=== PATIENT | female | born 1960 | race Caucasian/White ===

== ENCOUNTER 2017-06-24 12:55 | Emergency (ER) | payer BC, OTHER ==
[2017-06-24 13:07] VITALS: BP 143/68; PULSE 85; RESP 16; TEMP 98.4
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
== END 2017-06-24 13:54 | disposition home or self-care (01) ==
LOC: EC 12:55
DX: S46.911A Strain of unspecified muscle, fascia and tendon at shoulder and upper arm level, right arm, initial encounter (principal); Z88.2 Allergy status to sulfonamides; Z91.030 Bee allergy status; Z91.048 Other nonmedicinal substance allergy status; Z88.8 Allergy status to other drugs, medicaments and biological substances; Z87.891 Personal history of nicotine dependence; X50.0XXA Overexertion from strenuous movement or load, initial encounter; Y92.69 Other specified industrial and construction area as the place of occurrence of the external cause; Y99.0 Civilian activity done for income or pay
CPT/HCPCS: 99283

== ENCOUNTER → 2018-05-12 | Outpatient (CLI) | payer BC ==
--- NOTE | 2018-05-12 15:47 | XR ---
EXAMINATION TYPE: XR cervical spine limited DATE OF EXAM: 05/12/2018 TECHNIQUE: Frontal and lateral views of the cervical spine are obtained. HISTORY: M50.30 Cervical disc degeneration COMPARISON: None FINDINGS: The cervical spine is visualized in its entirety from C1 thru the top of T1 level, it is s atisfactory in alignment without evidence of acute fracture or dislocation. Prevertebral soft tissue thickness is within normal limits however there is heterotopic ossification within the prevertebral s oft tissues again seen as present on the prior spanning the C3-C5 vertebral levels. Anterior cervical fusion device spans the C6 and C7 vertebral bodies with partial osseous fusion. Multilevel uncoverte bral hypertrophy is seen on the frontal image throughout the upper cervical spine. There is no eviden ce of hardware fracture. There is straightening of usual cervical lordosis. The C1-C2 articulation is within normal limits on the open mouth view. IMPRESSION: 1. No acute fracture or malalignment is seen in the cervical spine. 2. Similar appearing heterotopic ossification within the prevertebral soft tissues from C3 through C5 and moderate multilevel degenerative change with straightening of usual cervical lordosis that can b e seen in muscular sprain or spasm. Unchanged postsurgical changes of the cervical spine with no hard rose fracture.
== END | disposition home or self-care (01) ==
LOC: RADXRMAIN 15:12
PROVIDERS: ATTEND Family Medicine
DX: M47.812 Spondylosis without myelopathy or radiculopathy, cervical region (principal); Z98.1 Arthrodesis status
CPT/HCPCS: 72040

== ENCOUNTER → 2018-10-06 | Outpatient (CLI) | payer BC ==
--- NOTE | 2018-10-09 13:33 | MM ---
Reason for exam: screening (asymptomatic). Last mammogram was performed 2 years and 3 months ago. History: Patient is postmenopausal. Benign mammogram-guided core biopsy of the left breast, June 28, 2014. MG 3D Screening Mammo W/Cad Bilateral CC and MLO view(s) were taken. Prior study comparison: July 10, 2016, bilateral MG screening mammo w CAD. June 28, 2014, mammogram, performed at [facility]. The breast tissue is heterogeneously dense. This may lower the sensitivity of mammography. There is a stable oval circumscribed right upper outer quadrant mass in the right breast. A left breast biopsy marker is noted. ASSESSMENT: Benign, BI-RAD 2 RECOMMENDATION: Routine screening mammogram of both breasts in 1 year.
== END | disposition home or self-care (01) ==
LOC: RADMAMWWP 15:16
PROVIDERS: ATTEND Family Medicine
DX: Z12.31 Encounter for screening mammogram for malignant neoplasm of breast (principal)
CPT/HCPCS: 77063; 77067

== ENCOUNTER → 2019-07-19 | Outpatient (CLI) | payer BC ==
--- NOTE | 2019-07-19 15:59 | XR ---
EXAMINATION TYPE: XR chest 2V DATE OF EXAM: 07/19/2019 COMPARISON: 03/03/2011 INDICATION: Pneumonia, cough x1 week TECHNIQUE: Frontal and lateral views of the chest are obtained. FINDINGS: The heart size is normal. The pulmonary vasculature is normal. Some plate like atelectasis is at the left diaphragm. Some mild increase infiltrate is in the posteri or medial right lower lobe. IMPRESSION: 1. Mild bibasilar infiltrates. Follow-up is recommended.
== END | disposition home or self-care (01) ==
LOC: RADXRMAIN 08:34
PROVIDERS: ATTEND Family Medicine
DX: R91.8 Other nonspecific abnormal finding of lung field (principal)
CPT/HCPCS: 71046

== ENCOUNTER → 2020-12-09 | Outpatient (CLI) | payer BC ==
--- NOTE | 2020-12-11 10:02 | MM ---
Reason for exam: screening (asymptomatic). Last mammogram was performed 2 years and 2 months ago. History: Patient is postmenopausal. Benign mammogram-guided core biopsy of the left breast, June 28, 2014. Physical Findings: A clinical breast exam by your physician is recommended on an annual basis and results should be correlated with mammographic findings. MG Screening Mammo w CAD Bilateral CC and MLO view(s) were taken. Prior study comparison: October 06, 2018, bilateral MG 3d screening mammo w/cad. July 10, 2016, bilateral MG screening mammo w CAD. The breast tissue is heterogeneously dense. This may lower the sensitivity of mammography. Previous mammotome biopsy in the left breast. Lateral asymmetric density right CC view slightly more defined. Faint calcifications posterior left CC view may represent developing vascular calcifications. ASSESSMENT: Incomplete: need additional imaging evaluation, BI-RAD 0 RECOMMENDATION: Special view mammogram of both breasts. (right spot 3D, left magnification) If lesion persists on supplemental views, image directed ultrasound is recommended. [facility] will attempt to contact patient to return for supplemental views and ultrasound if indicated.
== END ==
LOC: RADMAMWWP 10:17
PROVIDERS: ATTEND Family Medicine
DX: Z12.31 Encounter for screening mammogram for malignant neoplasm of breast (principal); Z78.0 Asymptomatic menopausal state
CPT/HCPCS: 77067

== ENCOUNTER → 2020-12-09 | Outpatient (CLI) | payer BC | END | disposition home or self-care (01) | LOC: LABPAT 10:24 | PROVIDERS: ATTEND Orthopaedic Surgery | DX: Z01.812 Encounter for preprocedural laboratory examination (principal) | CPT/HCPCS: 87070 ==

== ENCOUNTER → 2020-12-09 | Outpatient (CLI) | payer BC ==
--- NOTE | 2020-12-09 11:11 | XR ---
EXAMINATION TYPE: XR chest 2V DATE OF EXAM: 12/09/2020 COMPARISON: Chest x-ray July 19, 2019 HISTORY: Shortness of breath on exertion. TECHNIQUE: Frontal and lateral views of the chest are obtained. FINDINGS: There is chronic parenchymal changes bilaterally including lateral left basilar linear scar ring and/or atelectasis redemonstrated. There is no new suspicious focal air space opacity, pleural effusion, or pneumothorax seen. The cardiac silhouette size is stable and within normal limits. Ante rior fusion plate lower cervical spine redemonstrated. Cholecystectomy clips redemonstrated on latera l view IMPRESSION: Chronic changes without new acute pulmonary process.
== END ==
LOC: RADXRMAIN 10:35
PROVIDERS: ATTEND Family Medicine
DX: R06.02 Shortness of breath (principal)
CPT/HCPCS: 71046

== ENCOUNTER → 2020-12-19 | Outpatient (CLI) | payer BC ==
--- NOTE | 2020-12-20 11:51 | MM ---
Reason for exam: additional evaluation requested from abnormal screening. Last mammogram was performed less than 1 month ago. History: Patient is postmenopausal. Benign mammogram-guided core biopsy of the left breast, June 28, 2014. Physical Findings: Nurse did not find any significant physical abnormalities on exam. MG Work Up Mamm w CAD BILAT Bilateral LM view(s) were taken. Spot compression CC view(s) were taken of the right breast. CC with magnification and MLO view(s) were taken of the left breast. Prior study comparison: December 09, 2020, bilateral MG screening mammo w CAD. October 06, 2018, bilateral MG 3d screening mammo w/cad. The breast tissue is heterogeneously dense. This may lower the sensitivity of mammography. No suspicious abnormality on the right breast. Heterogeneous small clustered calcifications far posterior left breast. These results were verbally communicated with the patient and result sheet given to the patient on 12/19/20. ASSESSMENT: Suspicious, BI-RAD 4 Suspicious, BI-RAD 4 abnormality in the left breast. Benign, BI-RAD 2 finding in the right breast. RECOMMENDATION: Stereotactic core biopsy of the left breast. Left voicemail with Dr. Osman's office with mammographic findings to follow up with the patient to schedule breast consultation. Patient having a knee replacement 12/26/20, unable to scheduled biopsy at this time. PRELIMINARY REPORT CALLED AND FAXED TO DR. OSMAN ON 12/20/20.
== END | disposition home or self-care (01) ==
LOC: RADMAMWWP 13:40
PROVIDERS: ATTEND Family Medicine
DX: R92.1 Mammographic calcification found on diagnostic imaging of breast (principal); Z78.0 Asymptomatic menopausal state
CPT/HCPCS: 77066

== ENCOUNTER 2020-12-30 10:28 | Day surgery (SDC) | payer BC ==
[2020-12-24 09:52] VITALS: BMI 41.5
--- NOTE | 2020-12-29 12:10 | HP ---
HISTORY AND PHYSICAL DATE OF SURGERY: 12/30/2020 HISTORY OF PRESENT ILLNESS: Ofelia Iraheta is a 60-year-old patient seen with symptomatic left knee osteoarthritis. After having treatment options discussed with her, she elected to proceed with a left total knee arthroplasty. Consent regarding the procedure was obtained. Medical clearance was provided by Dr. Osman. PAST MEDICAL HISTORY: Hypertension, arc-vdxiojn-bpgmazofa diabetes, COPD. PAST SURGICAL HISTORY: Hand surgery, cervical fusion. DAILY MEDICATIONS: Atenolol, gabapentin, glipizide, lisinopril, Trulicity. ALLERGIES: SULFA AND NICKEL. SOCIAL HISTORY: She denies current tobacco use. PHYSICAL EXAMINATION: Evaluation of the left knee: Range of motion -3 to 90. Mild effusion. Tenderness medial joint line. Crepitus on the medial patellofemoral compartments on range of motion. Pain with patellofemoral compression. Ligaments are stable. Hip rotation is without pain. Her distal neurovascular exam is intact. RADIOGRAPHS: Radiographs of the left knee reveal severe osteoarthritic changes. IMPRESSION: 1. Left knee osteoarthritis. 2. Hypertension. 3. Eav-tgxyjje-vnbvddrud diabetes. 4. Chronic obstructive pulmonary disease. PLAN: Left total knee arthroplasty. MMODL / IJN: [id number] /
[~2020-12-30 10:28] MED LIST: ACETAMINOPHEN TAB 500 MG TAB PO PRN; DEXAMETHASONE SOD PHOSPHATE 4 MG/ML 1 ML VIAL IV ONE; HYDROmorphone 0.5 MG/0.5 ML SYRINGE IVP PRN; MELOXICAM 7.5 MG TAB PO PRN; ONDANSETRON 4 MG/2 ML VIAL IVP ONE; ROPIVACAINE/EPI/CLONIDINE/KET 50 ML SYRINGE MISCELLANE PRN; TRANEXAMIC ACID 1,000 MG in SODIUM CHLORIDE 0.9% 100 ML IVPB PRN
[2020-12-30] MEDS: LACTATED RINGERS 1,000 ML IV SCH ×3 (11:01→20:40)
[2020-12-30] MEDS ORDERED: LIDOCAINE 1% (10MG/ML) FOR IV START INTRADERMA ONE (11:01)
[2020-12-30] MEDS: MIDAZOLAM 2 MG/2 ML VIAL IV PRN ×2 (11:04→11:25)
[2020-12-30 11:05] LABS: Glucose,Whole Blood 99 mg/dL (75-99)
[2020-12-30] MEDS ORDERED: fentaNYL (PF) 50 MCG/ML 2 ML AMP IVP ONE (11:25)
[2020-12-30] MEDS ORDERED: SODIUM CHLORIDE 0.9% 100 ML BAG ONE (11:42)
[2020-12-30] MEDS ORDERED: MIDAZOLAM 2 MG/2 ML VIAL ONE (11:42)
[2020-12-30] MEDS ORDERED: PROPOFOL 10 MG/ML 20 ML VIAL IV ONE (11:42)
[2020-12-30] MEDS ORDERED: TRANEXAMIC ACID 1,000 MG/10 ML VIAL ONE (11:42)
[2020-12-30] MEDS ORDERED: ROPIVACAINE 5 MG/ML 30 ML VIAL ONE (11:42)
[2020-12-30] MEDS ORDERED: ceFAZolin 1,000 MG in SODIUM CHLORIDE 0.9% 1,000 ML IRRIGATION ONE (12:19)
[2020-12-30] MEDS ORDERED: LACTATED RINGERS 1,000 ML IV ONE (12:48)
[2020-12-30] MEDS ORDERED: ONDANSETRON 4 MG/2 ML VIAL IVP PRN (13:43)
[2020-12-30] MEDS ORDERED: HYDROcodone/APAP 5-325MG 1 EACH TAB PO PRN (13:43)
[2020-12-30] MEDS ORDERED: hydrOXYzine pamoate 25 MG CAP PO PRN (13:43)
[2020-12-30] MEDS ORDERED: NALOXONE 0.4 MG/ML 1 ML VIAL IV PRN (13:43)
[2020-12-30] MEDS ORDERED: HYDROmorphone 0.5 MG/0.5 ML SYRINGE IVP PRN (13:43)
[2020-12-30] MEDS ORDERED: HYDROmorphone 0.2 MG/1 ML SYRINGE IVP PRN (13:43)
--- NOTE | 2020-12-30 13:43 | P.OP ---
Date of Procedure: 12/30/20 Preoperative Diagnosis: Left knee osteoarthritis Postoperative Diagnosis: Left knee osteoarthritis Procedure(s) Performed: Left total knee arthroplasty Implants: 1. Aesculap [place] CR size 5 narrow cemented femur 2. Aesculap Sj CR size T4 cemented tibial baseplate 3. Aesculap Sj CR T4 10 millimeter polyethylene tibial insert 4. Aesculap P4 polyethylene cemented patella Anesthesia: regional (Adductor canal catheter, I pack block), spinal Surgeon: Felton Scott Beader Tender #1: Damian Israel Estimated Blood Loss (ml): 55 Pathology: other (Bone) Condition: stable Disposition: PACU Indications for Procedure: 60-year-old patient seen with symptomatic left knee osteoarthritis. After treatment options were discussed, she elected to proceed with total knee arthroplasty. Operative Findings: See description of procedure Description of Procedure: Patient was taken to the operative suite after having an adductor canal catheter placed by the department of anesthesia. Patient underwent a spinal anesthetic by the department of anesthesia. Patient was given preoperative IV intake antibiotics and TXA. A well-padded tourniquet was placed about the left lower extremity. The lower extremity was then prepped and draped in the normal sterile orthopedic fashion. The extremity was elevated, a tourniquet was insufflated to 300. A standard anterior incision was made sharply through skin. Dissection was taken down through the subcutaneous soft tissues down to the extensor mechanism. A medial arthrotomy was performed, patella was everted and knee was flexed. There was advanced osteoarthritis noted. I introduced my distal intramedullary femoral drill. I then introduced the distal femoral cutting jig. Dev FENG secured the cutting jig with 2 pins. I held retractors in position while Dev FENG performed the distal femoral resection through the guide area we now removed her distal femoral cutting guide. We now placed our 4-in-1 femoral cutting block and positioned and it was secured with 2 pins by Dev FENG while I held the block in position. The distal femoral finishing was now completed. A proximal tibial cutting guide was positioned. I held the guide in the appropriate position with both hands well Dev FENG inserted stabilizing pins into the guide. Proximal tibial cut was made. We now placed a trial femoral component into position, along with an appropriate size tibial tray and insert. We now took the knee through range of motion and had full extension good flexion and good overall soft tissue balance noted. The patella was everted and stabilized with 2 towel clips held by Dev FENG while I performed a flush with patellar quad tendon utilizing a fresh sawblade. We templated the patella, appropriate drill holes were made. An appropriate trial patella was positioned, knee was taken through full range of motion with the patella tracking very nicely. The trial patella was removed. Drill holes were made through the femoral component. All trial components were removed after marking off the appropriate rotation of the tibia. Retractors were now positioned along the proximal tibia. An appropriate keel punch was made with the appropriate size tibial guide by myself on Dev FENG assisted by holding retractors. At this point appropriate size implants were chosen and opened. The joint was irrigated copiously with pulse lavage mechanical irrigation. The posterior capsule was infiltrated with local analgesic. The wound was irrigated with pulse lavage mechanical irrigation. We mixed antibiotic methylmethacrylate. We placed the knee into flexion. We placed multiple retractors assisted by Dev FENG to expose the proximal tibia. Once the methyl methacrylate was ready, the tibial component was cemented into place removing any excess methylmethacrylate form by both myself and Dev FENG. The femoral component was cemented into place removing the removing any excess methylmethacrylate performed by both myself and Dev FENG. We then inserted the appropriate size polyethylene tibial insert. We made sure that it was locked into position. We took the knee into full extension, and then back in a flexion making sure we had removed any excess methylmethacrylate. The patellar component was then cemented down and secured with clamp. Excess methylmethacrylate removed. We kept the knee in full extension, patellar clamp in position until methylmethacrylate had hardened. Once it had hardened the patellar clamp was removed. The knee was taken through full range of motion. The patella tracked nicely. There was good soft tissue balancing. The tourniquet was now released. Additional hemostasis was achieved via electrocautery. A second gram of TXA was given. The wound again was irrigated with pulse lavage mechanical irrigation. The superficial soft tissues were infiltrated local analgesic. The extensor mechanism was repaired with the Ethibond. We checked the repair with range of motion and it was stable. The subcutaneous soft tissues were repaired with Vicryl in layers. The skin was approximated with pernio/Dermabond. Sterile dressings were applied followed by loose web roll and Long bandage. The patient was transferred to a bed, and taken to recovery in stable and satisfactory condition. Dev FENG assisted with this complex procedure.
[2020-12-30] MEDS ORDERED: ROPIVACAINE 0.2%-NS ON-Q PUMP 1,090 MG, EMPTY PAIN BALL 1 EACH MISCELLANE PRN (14:11)
--- NOTE | 2020-12-30 14:28 | P.ANPRN ---
Procedure Note - Anesthesia - Nerve Block Performed Left Adductor Canal Infusion Time Out Performed: Yes (1122) Date of Procedure: 12/30/20 Procedure Start Time: 11:24 Procedure Stop Time: 11:29 Location of Patient: PreOp Indication: Acute Post-Operative Pain, Requested by Surgeon Specifically requested for management of pain by DrBooker: Felton Scott Sedation Type: Sedate with meaningful contact maintained Preparation: Sterile Prep Position: Supine Catheter Depth at Skin (cm): 8 Catheter: Indwelling Needle Types: Pajunk Needle Gauge: 21 Ultrasound used to visualize needle placement: Yes Ultrasound used to observe medication spread: Yes Injectate: 0.5% Ropivacaine (see comment for volume) (15cc) Blood Aspirated: No Pain Paresthesia on Injection Noted: No Resistance on Injection: Normal Image Stored and Saved: Yes Events: Uneventful and Well Tolerated Left iPack Single Time Out Performed: Yes (1122) Date of Procedure: 12/30/20 Procedure Start Time: 11:30 Procedure Stop Time: 11:34 Location of Patient: PreOp Indication: Acute Post-Operative Pain, Requested by Surgeon Specifically requested for management of pain by DrBooker: Felton Scott Sedation Type: Sedate with meaningful contact maintained Preparation: Sterile Prep Position: Supine Catheter: None Needle Types: Pajunk Needle Gauge: 21 Ultrasound used to visualize needle placement: Yes Ultrasound used to observe medication spread: Yes Injectate: 0.5% Ropivacaine (see comment for volume) (15cc) Blood Aspirated: No Pain Paresthesia on Injection Noted: No Resistance on Injection: Normal Image Stored and Saved: Yes Events: Uneventful and Well Tolerated
--- NOTE | 2020-12-30 14:34 | XR ---
EXAMINATION TYPE: XR knee limited LT DATE OF EXAM: 12/30/2020 COMPARISON: NONE HISTORY: 60-year-old female evaluation for postoperative abnormality in alignment. TECHNIQUE: 2 views FINDINGS: Images show placement of left total knee arthroplasty. Both distal femoral and proximal tibial compon ents of the prosthesis are well seated without periprosthetic fracture. Alignment grossly anatomic. A nterior soft tissue swelling with skin kevin and scattered soft tissue air as well as intra-articul ar air compatible with recent operation. IMPRESSION: Uncomplicated postoperative appearance left total knee arthroplasty.
[2020-12-30 15:04] LABS: Glucose,Whole Blood 101 mg/dL (75-99)
[2020-12-30] MEDS ORDERED: SYMBICORT 160-4.5 MCG INHALER INHALATION PRN (17:18)
[2020-12-30] MEDS: HYDROcodone/APAP 5-325MG 1 EACH TAB PO PRN (17:47)
[2020-12-30 17:56] LABS: Glucose,Whole Blood 147 mg/dL (75-99)
[2020-12-30] MEDS: INSULIN ASPART (NovoLOG) 100 UNIT/ML VIAL SQ SCH ×2 (18:16→20:38)
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
[2020-12-30 20:31] LABS: Glucose,Whole Blood 182 mg/dL (75-99)
[2020-12-30] MEDS: GABAPENTIN 400 MG CAP PO SCH (20:38)
[2020-12-30] MEDS ORDERED: SENNOSIDES-DOCUSATE SODIUM 1 EACH TAB PO SCH (21:00)
[2020-12-30] MEDS: HYDROmorphone 0.5 MG/0.5 ML SYRINGE IVP PRN (22:16)
[2020-12-31] MEDS: LACTATED RINGERS 1,000 ML IV SCH ×2 (02:26→09:47)
[2020-12-31 02:57] VITALS: PULSE 89
[2020-12-31] MEDS: HYDROcodone/APAP 5-325MG 1 EACH TAB PO PRN ×2 (05:39→12:38)
[2020-12-31 07:15] LABS: Glucose,Whole Blood 232 mg/dL (75-99)
[2020-12-31] MEDS ORDERED: glipiZIDE 5 MG TAB PO SCH (07:30)
[2020-12-31] MEDS: INSULIN ASPART (NovoLOG) 100 UNIT/ML VIAL SQ SCH ×2 (07:46→12:37)
[2020-12-31 08:27] VITALS: BP 138/76; RESP 19; TEMP 98.4
[2020-12-31] MEDS ORDERED: lisinopriL 5 MG TAB PO SCH (09:00)
[2020-12-31] MEDS ORDERED: MELOXICAM 7.5 MG TAB PO SCH (09:00)
[2020-12-31] MEDS ORDERED: ENOXAPARIN 30 MG/0.3 ML SYRINGE SQ SCH (09:00)
[2020-12-31] MEDS ORDERED: atenoloL 50 MG TAB PO SCH (09:00)
[2020-12-31] MEDS: GABAPENTIN 400 MG CAP PO SCH (09:24)
[2020-12-31] MEDS: HYDROmorphone 0.5 MG/0.5 ML SYRINGE IVP PRN (09:25)
[2020-12-31 09:59] LABS: Basophils # (A) 0.03 X 10*3/uL (0.00-0.10); Basophils % (A) 0.2 %; Eosinophils # (A) 0.04 X 10*3/uL (0.04-0.35); Eosinophils % (A) 0.3 %; HCT 37.7 % (37.2-46.3); HGB 11.7 g/dL (12.0-15.0); Lymphocytes % (A) 14.9 %; MCH 28.8 pg (27.0-32.0); MCV 92.9 fL (80.0-97.0); Mean Platelet Volume 10.4 fL (9.5-12.2); Monocytes # (A) 0.99 X 10*3/uL (0.20-1.00); Monocytes % (A) 8.2 %; Neutrophils # (A) 9.16 X 10*3/uL (1.80-7.70); Neutrophils % (A) 75.9 %; Platelet Count 397 X 10*3/uL (140-440); RBC 4.06 X 10*6/uL (4.10-5.20); RDW 13.7 % (11.5-14.5); WBC 12.08 X 10*3/uL (4.50-10.00)
--- NOTE | 2020-12-31 10:11 | P.PN ---
Subjective Progress Note Date: 12/31/20 Principal diagnosis: Status post left total knee arthroplasty Patient evaluated bedside today, she is resting comfortably. She has been up working with physical therapy and tolerating that well. She has noted slight increasing pain since then. She has no headaches, lightheadedness, chest pain or shortness of breath. Objective - Vital Signs Vital signs: Vital Signs Temp 98.4 F 12/31/20 08:00 Pulse 89 12/31/20 08:00 Resp 19 12/31/20 08:00 BP 138/76 12/31/20 08:00 Pulse Ox 92 L 12/31/20 08:00 Intake & Output 12/30/20 12/31/20 12/31/20 18:59 06:59 18:59 Intake Total 1451 Output Total 55 Balance 1396 Weight 118.8 kg Intake: IV 1451 Output: Estimated Blood Loss 55 Other: # Voids 2 - Exam Left lower extremity: Incision is clean, dry, and intact. The exofin fusion tape is in good condition. There is minimal soft tissue swelling and ecchymosis surrounding the medial and lateral aspects of the incision. Calf is soft, no tenderness with palpation. Plantar flexion, dorsiflexion, EHL, FHL are intact. Sensory exam to light touch throughout the extremity is intact, dorsal pedis pulses 2+. - Labs CBC & Chem 7: 12/31/20 05:29 Labs: Abnormal Lab Results - Last 24 Hours (Table) 12/30/20 12/30/20 12/30/20 Range/Units 15:02 17:54 20:30 WBC (4.50-10.00) X 10*3/uL RBC (4.10-5.20) X 10*6/uL Hgb (12.0-15.0) g/dL MCHC (32.0-37.0) g/dL Immature Gran # (0.00-0.04) X 10*3/uL Neutrophils # (1.80-7.70) X 10*3/uL POC Glucose (mg/dL) 101 H 147 H 182 H (75-99) mg/dL 12/31/20 12/31/20 Range/Units 05:29 07:13 WBC 12.08 H (4.50-10.00) X 10*3/uL RBC 4.06 L (4.10-5.20) X 10*6/uL Hgb 11.7 L (12.0-15.0) g/dL MCHC 31.0 L (32.0-37.0) g/dL Immature Gran # 0.06 H (0.00-0.04) X 10*3/uL Neutrophils # 9.16 H (1.80-7.70) X 10*3/uL POC Glucose (mg/dL) 232 H (75-99) mg/dL Assessment and Plan Assessment: Status post left total knee arthroplasty Plan: Pain control, [place] 7.5 mg/325 mg of discharge DVT prophylaxis, Eliquis 2.5 mg twice a day for 2 weeks Wound care instructions were discussed Icing and elevating techniques discussed Home physical therapy and nursing after discharge Medical recommendations Plan for discharge home today Time with Patient: Less than 30
--- NOTE | 2020-12-31 10:16 | P.DS ---
Providers Date of admission: 12/30/2020 Expected date of discharge: 12/31/20 Attending physician: Felton Scott Consults: 12/30/20 13:43 Consult Physician Routine Consulting Provider: Stevie Peng Consult Reason/Comments: Medical management Do you want consulting provider notified?: Yes Primary care physician: Srinivas [facility] Hospital Course: Date of admission: 12/31/2019 Date of discharge: 12/31/2020 Admission diagnosis: Status post left total knee arthroplasty Discharge diagnosis: Same Attending physician: Dr. Scott Surgical procedures: Left total knee arthroplasty Brief history: Patient is a 60-year-old female with a history of progressive primary left knee osteoarthritis. At this point patient has failed conservative treatment measures and has opted to proceed with a elective left total knee arthroplasty. Hospital course: Details of patient's surgery can be found in operative report. Patient tolerated the procedure well and was subsequently transported to orthopedic floor. Patient's orthopeidc and medical care was provided daily. Patient had daily laboratory tests performed for evaluation of overall blood counts. Patient had daily physical therapy to include strengthening range of motion as well as education with walker ambulation. Patient was treated with Lovenox for their postoperative DVT prophylaxis during their inpatient stay. Patient was noted to have a relatively uneventful postoperative course. Patient reported satisfactory pain control with oral pain medications by postoperative day 0. Patient showed satisfactory progress with physical therapy. Patient moved steadily through the program and had no difficulty meeting the goals by postoperative day 1. Given patient's otherwise satisfactory course and having met physical therapy goals, plan is to discharge patient home on postoperative day 1. Discharge condition/disposition: Patient will be discharged home in stable condition. Discharge medications: Instructions are given on resumption of patient's normal daily medications per primary care recommendation, in addition patient will be prescribed [place] 7.5 mg/325 mg, Colace 100 mg, Eliquis 2.5 mg. Discharge instructions: 1. Wound care and infection precautions, keep incision dry and covered while showering, no lotions, creams, moisturizers. No soaking, tubs, pools, hottubs. Do not scrub over the incision. 2. Weight-bear as tolerated with walker / cane until follow-up. 3. Ice and elevate when necessary. Do not exceed 20 minutes per hour with ice pack. 4. Utilize compression sleeve until seen at first follow up appointment. 5. Visiting nursing care. 6. Home physical therapy including home CPM. 7. Pain meds and anticoagulants per prescription. 8. Pain medication has potential to cause constipation. Increase oral fluid and fiber intake. Contact primary care provider if you have not had a bowel movement within 48 hours after discharge 9. No anti-inflammatory medication until discussed at first post operative visit, this including Motrin, Aleve, Mobic, Diclofenac. 10. Follow up in office at 2 weeks postop with Dev Israel PA-C/Sterling Chavis 11. Follow up with your primary care doctor 7-10 days after discharge. 12. Contact [facility] with any questions, . Procedures: Left total knee arthroplasty Patient Condition at Discharge: Good Plan - Discharge Summary Discharge Rx Participant: Yes New Discharge Prescriptions: New Apixaban [Eliquis] 2.5 mg PO BID #60 tab Docusate [Colace] 100 mg PO DAILY #30 capsule HYDROcodone/APAP 7.5-325MG [[place] 7.5] 1 - 2 each PO Q6HR PRN #42 tab PRN Reason: Pain No Action Gabapentin [Neurontin] 400 mg PO TID Atenolol [Tenormin] 50 mg PO DAILY glipiZIDE [Glucotrol] 5 mg PO AC-BRKFST Budesonide-Formot 160-4.5 Mcg [Symbicort 160-4.5 Mcg Inhaler] 2 puff INHALATION BID PRN PRN Reason: Shortness Of Breath lisinopriL [Zestril] 5 mg PO DAILY Insulin Degludec [Tresiba] 80 units SQ HS Dulaglutide [Trulicity] 1.5 mg SQ WE Discharge Medication List Atenolol [Tenormin] 50 mg PO DAILY 12/24/20 [History] Budesonide-Formot 160-4.5 Mcg [Symbicort 160-4.5 Mcg Inhaler] 2 puff INHALATION BID PRN 12/24/20 [History] Dulaglutide [Trulicity] 1.5 mg SQ WE 12/24/20 [History] Gabapentin [Neurontin] 400 mg PO TID 12/24/20 [History] Insulin Degludec [Tresiba] 80 units SQ HS 12/24/20 [History] glipiZIDE [Glucotrol] 5 mg PO AC-BRKFST 12/24/20 [History] lisinopriL [Zestril] 5 mg PO DAILY 12/24/20 [History] Apixaban [Eliquis] 2.5 mg PO BID #60 tab 12/31/20 [Rx] Docusate [Colace] 100 mg PO DAILY #30 capsule 12/31/20 [Rx] HYDROcodone/APAP 7.5-325MG [[place] 7.5] 1 - 2 each PO Q6HR PRN #42 tab 12/31/20 [Rx] Follow up Appointment(s)/Referral(s): Damian Israel, PAC [PHYSICIAN LEAN [employer] SENIOR SPECIALIST] - 2 Weeks Activity/Diet/Wound Care/Special Instructions: Orthopedic Discharge Instructions: 1. Wound care and infection precautions, keep incision dry and covered while showering, no lotions, creams, moisturizers. No soaking, pools, hot tubs. Do not scrub over incision. 2. Weight-bear as tolerated with walker / cane until follow-up. 3. Ice and elevate when necessary. Do not exceed 20 minutes per hour with ice pack. 4. Utilize compression sleeve until seen at first follow up appointment. 5. Pain meds and anticoagulants per prescription. 6. Pain medication has potential to cause constipation. Increase oral fluid and fiber intake. Contact primary care provider if you have not had a bowel movement within 48 hours after discharge. 7. No anti-inflammatory medication until discussed at first post operative visit, this including Motrin, Aleve, Mobic, Diclofenac. 8. Follow up in office at 2 weeks postop with Dev Israel PA-C/Sterling Tineo PA-C 9. Follow up with your primary care doctor 7-10 days after discharge. 10. Contact [facility] with any questions, . Wound care instructions: 1. Okay to remove foam dressing on 01/06/2021 2. After removal of foam dressing, please shower directly over incision Discharge Disposition: HOME WITH HOME HEALTH SERVICES
[2020-12-31 11:33] LABS: Glucose,Whole Blood 205 mg/dL (75-99)
--- NOTE | 2020-12-31 13:31 | P.PN ---
Progress Note - Text 12/31/20 704am Her female status post total knee replacement. Patient has an On-Q pump for postop pain control, solution running at 8 mL an hour with a with a VAS of 4. Dressing clean diet and intact plan to continue On-Q pump infusion
--- NOTE | 2021-01-01 15:23 | P.PN ---
Progress Note - Text Progress Note Date: 12/31/20 - Chief Complaint Left knee surgery Consultation: This is a pleasant 60-year-old patient of Dr. Manuela Osman. Chronic stable medical conditions include COPD, diabetes, hypertension, hyperlipidemia and peripheral neuropathy. Patient has undergone left total knee arthroplasty. Today: Sitting up in bed. Did tolerate her breakfast. Pain control. Did work as physical therapy. Overall feeling better. Review of systems: Was done for constitutional, cardiovascular, GI, pulmonary. 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 No alcohol. . Physical examination: VITAL SIGNS: 98.4, 89, 19, 138/76, 92% room air GENERAL:reclining in bed, awake comfortable. EYES: Pupils equal. Conjunctiva normal. NECK: JVD not raised; masses not palpable. HEART: First and second heart sounds are normal; no edema. LUNGS: Respiratory rate normal; clear to auscultation. ABDOMEN: Soft, nontender, liver spleen not palpable, no masses palpable. PSYCH: Alert and oriented x3; mood and affect normal. MUSCULAR skeletal: Dressing over the left knee, evidence of OA in other joints Investigations: WBC 12.08 hemoglobin 11.7 K2 397 Accu-Cheks: 99, 101, 147 Assessment and plan: -Diabetes mellitus type 2. Resume oral hypoglycemic and insulin. Follow Accu- Cheks -COPD. Continue with Symbicort -Diabetic peripheral neuropathy. Continue with Neurontin -Essential hypertension, continue with Zestril and Tenormin -Morbid obesity BMI 43.6. Follow outpatient with PCP for weight loss measures. -Primary osteoarthritis. Use analgesics when necessary -Left total knee arthroplasty. Pain control per primary team. Physical therapy. -Postprocedure DVT prophylaxis: On Lovenox subcu 30 mg every [address] Sinclair -Acute postprocedure blood loss anemia, as expected. Stable Care was discussed with the patient Questions answered. If discharged, follow with PCP Thank you Dr. Sinclair
== END 2020-12-31 14:07 | disposition home health service (06) ==
LOC: OR 10:28 → 4SSUR 16:54 → OR 12-31 14:07
PROVIDERS: ATTEND Orthopaedic Surgery
DX: M17.12 Unilateral primary osteoarthritis, left knee (principal); I10 Essential (primary) hypertension; E11.9 Type 2 diabetes mellitus without complications; E78.5 Hyperlipidemia, unspecified; J44.9 Chronic obstructive pulmonary disease, unspecified; Z79.84 Long term (current) use of oral hypoglycemic drugs; Z79.899 Other long term (current) drug therapy; Z88.2 Allergy status to sulfonamides; Z88.8 Allergy status to other drugs, medicaments and biological substances; Z87.891 Personal history of nicotine dependence
CPT/HCPCS: 27447; 97110; 97161; 64999; 64448; 76942; 85025; 88300; 73560; C1776; C1713; J2250; J1100; J0690 ×3; J2405; J3010; J1650; J1170 ×2; J2795

== ENCOUNTER → 2021-02-13 | Outpatient (CLI) | payer BC ==
[2021-02-13 13:23] VITALS: BP 109/71; PULSE 81; RESP 18; TEMP 99.3
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
== END ==
LOC: WWCWWP 12:54
PROVIDERS: ATTEND Surgery
DX: N60.12 Diffuse cystic mastopathy of left breast (principal); N60.11 Diffuse cystic mastopathy of right breast; J44.9 Chronic obstructive pulmonary disease, unspecified; E11.36 Type 2 diabetes mellitus with diabetic cataract; E78.5 Hyperlipidemia, unspecified; I10 Essential (primary) hypertension; Z79.4 Long term (current) use of insulin; Z79.51 Long term (current) use of inhaled steroids; Z79.899 Other long term (current) drug therapy; Z87.891 Personal history of nicotine dependence; Z88.2 Allergy status to sulfonamides; Z88.1 Allergy status to other antibiotic agents; Z91.030 Bee allergy status; Z88.8 Allergy status to other drugs, medicaments and biological substances; Z91.048 Other nonmedicinal substance allergy status

== ENCOUNTER → 2021-02-28 | Day surgery (SDC) | payer BC ==
[2021-02-28 07:21] VITALS: PULSE 80; RESP 16
--- NOTE | 2021-02-28 08:45 | P.PCN ---
Date of Procedure: 02/28/21 Preoperative Diagnosis: Microcalcifications of concern posterior left breast Postoperative Diagnosis: Same Procedure(s) Performed: Left breast stereotactic core biopsy Anesthesia: local Surgeon: Kristine Ramos Pathology: other (Breast tissue/microcalcifications of concern in specimen) Condition: stable Disposition: same day Indications for Procedure: Abnormal mammogram left breast Operative Findings: Core biopsy specimen reveals microcalcifications of concern Description of Procedure: Ofelia is a 60-year-old white female who on the mammogram was noted to have heterogeneous calcifications of concern in the left breast. These were far posterior. Recommendation was for stereotactic core biopsy. Risks and benefits of the procedure were discussed with the patient. She wished to proceed. Alternatives such as watchful waiting for resection of the operating room were not recommended. The patient was brought to the stereotactic core biopsy room. She was positioned on the lo-rad table. A high school foreign language teacher film was obtained. The area of concern was identified. A CC from below approach was utilized. The area was targeted. The breast was prepped using Betadine. 20 mL of 1% lidocaine were used to anesthetize the area of concern. A 9-gauge vacuum-assisted core rotating biopsy needle was driven to the correct coordinates. The needle was fired. A post- fire film was obtained. The needle was noted to be in the correct location. 12 core specimens were obtained. Radiograph of the specimen revealed microcalcifications of concern to be present. A secure a Toupet clip was placed. This was noted to be in the correct location. The patient tolerated the procedure in stable condition. The patient will follow-up with Dr. Catalan next week. The specimen was sent to pathology.
[2021-02-28 09:03] VITALS: BP 125/78; TEMP 98.2
--- NOTE | 2021-02-28 11:50 | MM ---
EXAMINATION TYPE: MG stereo VAD BX LT DATE OF EXAM: 02/28/2021 COMPARISON: Mammogram 12/19/2020 CLINICAL HISTORY: Left breast calcifications TECHNIQUE: Stereotactic guided core biopsy of left breast. FINDINGS: The procedure of stereotactic guided core biopsy was explained to the patient. Benefits, alternatives, and risks were discussed. An informed consent was then obtained. The shortness pathway for biopsy was chosen. Shortest pathway was from inferior approach on CC. I performed the localization, then surgeon, Dr. Hossein Velásquez performed the remainder of the procedure. A vacuum assisted biopsy gun was used to obtain multiple core samples by Dr. Hossein Velásquez. The patient tolerated the procedure well without any immediate complication. The patient was kept in the radiology department for short stay after the procedure and then discharged home in stable condition. Targeted calcifications are identified in specimen mammogram. Post biopsy mammogram shows the clip to appear in satisfactory position relative to the targeted area of concern on the preprocedure images. IMPRESSION: SUCCESSFUL, UNCOMPLICATED STEREOTACTIC GUIDED CORE BIOPSY OF AREA OF CONCERN IN THE LEFT BREAST, FULL PATHOLOGY RESULTS TO FOLLOW. Pathology Results: High Risk LEFT BREAST, BIOPSY: Atypical lobular hyperplasia (ALH) and fibrocystic changes including fibroadenomatoid hyperplasia with calcifications. Recommendation Surgical consult of the left breast. STEVEN
== END ==
LOC: RADMAMWWP 06:58
PROVIDERS: ATTEND Surgery
DX: N60.12 Diffuse cystic mastopathy of left breast (principal); N62 Hypertrophy of breast; R92.1 Mammographic calcification found on diagnostic imaging of breast; Z88.2 Allergy status to sulfonamides; Z88.8 Allergy status to other drugs, medicaments and biological substances
CPT/HCPCS: 88305; 19081; A4648; J2001

== ENCOUNTER → 2021-03-06 | Outpatient (CLI) | payer BC ==
[2021-03-06 13:15] VITALS: BP 128/76; PULSE 80; RESP 18; TEMP 98.3
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
== END ==
LOC: WWCWWP 12:57
PROVIDERS: ATTEND Surgery
DX: N60.92 Unspecified benign mammary dysplasia of left breast (principal); E11.9 Type 2 diabetes mellitus without complications; J44.9 Chronic obstructive pulmonary disease, unspecified; M19.90 Unspecified osteoarthritis, unspecified site; Z87.891 Personal history of nicotine dependence; Z88.2 Allergy status to sulfonamides; Z88.8 Allergy status to other drugs, medicaments and biological substances; Z88.9 Allergy status to unspecified drugs, medicaments and biological substances; Z91.030 Bee allergy status

== ENCOUNTER → 2021-04-17 | Outpatient (CLI) | payer BC ==
[2021-04-17 11:36] VITALS: BP 132/84; PULSE 95; RESP 18; TEMP 98.7
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
== END ==
LOC: WWCWWP 11:28
PROVIDERS: ATTEND Surgery
DX: N60.92 Unspecified benign mammary dysplasia of left breast (principal); E11.9 Type 2 diabetes mellitus without complications; J44.9 Chronic obstructive pulmonary disease, unspecified; M19.90 Unspecified osteoarthritis, unspecified site; Z87.891 Personal history of nicotine dependence; Z88.2 Allergy status to sulfonamides; Z88.8 Allergy status to other drugs, medicaments and biological substances; Z88.9 Allergy status to unspecified drugs, medicaments and biological substances; Z91.030 Bee allergy status

== ENCOUNTER → 2021-04-30 | Outpatient (CLI) | payer BC ==
[2021-04-30 10:24] LABS: Basophils # (A) 0.1 k/uL (0-0.2); Basophils % (A) 1 %; Eosinophils # (A) 0.3 k/uL (0-0.7); Eosinophils % (A) 4 %; HCT 40.4 % (34.0-46.0); HGB 13.3 gm/dL (11.4-16.0); Lymphocytes # (A) 1.5 k/uL (1.0-4.8); Lymphocytes % (A) 20 %; MCH 29.5 pg (25.0-35.0); MCHC 32.9 g/dL (31.0-37.0); MCV 89.9 fL (80.0-100.0); Mean Platelet Volume 7.5; Monocytes # (A) 0.4 k/uL (0-1.0); Monocytes % (A) 6 %; Neutrophils # (A) 5.2 k/uL (1.3-7.7); Neutrophils % (A) 68 %; Platelet Count 356 k/uL (150-450); RBC 4.49 m/uL (3.80-5.40); RDW 14.2 % (11.5-15.5); WBC 7.7 k/uL (3.8-10.6)
[2021-04-30 10:34] LABS: INR 0.9 (<1.2); Prothrombin Time 9.8 sec (9.0-12.0)
[2021-04-30 10:57] LABS: Potassium 4.6 mmol/L (3.5-5.1)
== END | disposition home or self-care (01) ==
LOC: LABPAT 09:27
PROVIDERS: ATTEND Orthopaedic Surgery
DX: Z01.812 Encounter for preprocedural laboratory examination (principal); M17.11 Unilateral primary osteoarthritis, right knee
CPT/HCPCS: 36415; 80051; 85025; 85610; 87070

== ENCOUNTER 2021-05-06 12:20 | Day surgery (SDC) | payer BC ==
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
[2021-05-01 17:47] VITALS: BMI 41.5
[~2021-05-06 12:20] MED LIST changes: -ACETAMINOPHEN TAB 500 MG TAB PO PRN; +HEPARIN SODIUM,PORCINE/PF 5,000 UNIT/0.5 ML SYRINGE SQ PRN; +LACTATED RINGERS 1,000 ML IV SCH; +LIDOCAINE 1% (10MG/ML) FOR IV START INTRADERMA PRN; -MELOXICAM 7.5 MG TAB PO PRN; +MIDAZOLAM 2 MG/2 ML VIAL IV PRN; -ONDANSETRON 4 MG/2 ML VIAL IVP ONE; +ONDANSETRON 4 MG/2 ML VIAL IVP PRN; +Pre Op ABX Message 1 EACH MISC MISCELLANE ONE; -ROPIVACAINE/EPI/CLONIDINE/KET 50 ML SYRINGE MISCELLANE PRN; +SCOPOLAMINE 1.5MG/72HR PATCH TRANSDERM ONE; -TRANEXAMIC ACID 1,000 MG in SODIUM CHLORIDE 0.9% 100 ML IVPB PRN
[2021-05-06 13:20] LABS: Glucose,Whole Blood 98 mg/dL (75-99)
[2021-05-06 13:23] VITALS: RESP 16
[2021-05-06] MEDS ORDERED: ALPRAZolam 0.25 MG TAB ONE (13:29)
[2021-05-06] MEDS ORDERED: ALPRAZolam 0.25 MG TAB PO ONE (13:30)
[2021-05-06 14:02] VITALS: BP 115/74; PULSE 89; TEMP 98.9
--- NOTE | 2021-05-06 15:21 | MM ---
EXAMINATION TYPE: MG discontinued needle loc LT DATE OF EXAM: 05/06/2021 COMPARISON: NONE CLINICAL HISTORY: Request for needle localization of previous mammotome surgical clip TECHNIQUE: Needle localization with wire placement and surgical excision of area of concern in the le ft breast. FINDINGS: The procedure of needle localization with wire placement and than surgical excision was exp lained to the patient. Benefits, alternatives, and risks were discussed. An informed consent was th en obtained. The technologist could not find or localized a surgical clip due to its far posterior location. There fore inferior approach could not be performed. Immediate medial and lateral approach demonstrated the clip to be 10 to 11 cm deep. The longest needle present at this institution is 9 cm and therefore th is approach could not be performed. This was discussed with referring physician who elected to defer the procedure. IMPRESSION: 1. Unsuccessful needle localization with deferred procedure as discussed above.
--- NOTE | 2021-05-06 16:38 | P.PN ---
Progress Note - Text Progress Note Date: 05/06/21 procedure cancelled secondary to inability to localize. Patient will have repeat mammogram of the left breast in 4-6 months with follow up visit at that time Have discussed this with the patient and her .
== END 2021-05-06 15:50 | disposition home or self-care (01) ==
LOC: OR 12:20
PROVIDERS: ATTEND Surgery
DX: Z53.8 Procedure and treatment not carried out for other reasons (principal); I10 Essential (primary) hypertension; E78.5 Hyperlipidemia, unspecified; E11.9 Type 2 diabetes mellitus without complications; M19.90 Unspecified osteoarthritis, unspecified site
CPT/HCPCS: 19281; J1100; 76098

== ENCOUNTER 2021-05-12 08:07 | Day surgery (SDC) | payer BC ==
[2021-05-07 15:30] VITALS: BMI 41.8
--- NOTE | 2021-05-11 10:55 | HP ---
HISTORY AND PHYSICAL REASON FOR ADMISSION: Surgery scheduled for 05/12/2021. HISTORY OF PRESENT ILLNESS: Ofelia Iraheta is a 60-year-old patient seen with symptomatic right knee osteoarthritis. We discussed options for treatment. She elected to proceed with right total knee arthroplasty. Consent was obtained. PAST MEDICAL HISTORY: Hypertension, [id number] diabetes. PAST SURGICAL HISTORY: Cervical fusion, left total knee arthroplasty, right hand surgery. MEDICATIONS: Glipizide, lisinopril, Trulicity, [place]. ALLERGIES: STATINS AND SULFA. SOCIAL HISTORY: She denies current tobacco use. PHYSICAL EVALUATION OF THE RIGHT KNEE: Range of motion is -3/4-115. Mild effusion. Tenderness medial joint line. Crepitus medial and patellofemoral compartments with range of motion. Pain with patellofemoral compression. Ligaments stable. Hip rotation without pain. Distal neurovascular exam is intact. RADIOGRAPHS: Radiographs of the right knee reveal severe osteoarthritic changes. IMPRESSION: 1. Right knee osteoarthritis. 2. Hypertension. 3. [id number] diabetes. PLAN: Right total knee arthroplasty. Surgery 05/12/2021. MMODL / IJN: [id number] /
[~2021-05-12 08:07] MED LIST changes: +ACETAMINOPHEN TAB 500 MG TAB PO PRN; -DEXAMETHASONE SOD PHOSPHATE 4 MG/ML 1 ML VIAL IV ONE; -HEPARIN SODIUM,PORCINE/PF 5,000 UNIT/0.5 ML SYRINGE SQ PRN; -HYDROmorphone 0.5 MG/0.5 ML SYRINGE IVP PRN; +MELOXICAM 7.5 MG TAB PO PRN; -ONDANSETRON 4 MG/2 ML VIAL IVP PRN; -Pre Op ABX Message 1 EACH MISC MISCELLANE ONE; +ROPIVACAINE/EPI/CLONIDINE/KET 50 ML SYRINGE MISCELLANE PRN; -SCOPOLAMINE 1.5MG/72HR PATCH TRANSDERM ONE; +TRANEXAMIC ACID 1,000 MG in SODIUM CHLORIDE 0.9% 100 ML IVPB PRN; +fentaNYL (PF) 50 MCG/ML 2 ML AMP IVP PRN
[2021-05-12] MEDS ORDERED: ONDANSETRON 4 MG/2 ML VIAL ONE (08:51)
[2021-05-12 08:52] LABS: Glucose,Whole Blood 114 mg/dL (75-99)
[2021-05-12] MEDS ORDERED: MIDAZOLAM 2 MG/2 ML VIAL IVP ONE (09:23)
[2021-05-12] MEDS ORDERED: ONDANSETRON 4 MG/2 ML VIAL IVP ONE (09:38)
[2021-05-12] MEDS ORDERED: DEXAMETHASONE SOD PHOSPHATE 4 MG/ML 1 ML VIAL IVP ONE (09:39)
[2021-05-12] MEDS ORDERED: fentaNYL (PF) 50 MCG/ML 2 ML AMP ONE (09:50)
[2021-05-12] MEDS ORDERED: LIDOCAINE 1% INJ 10MG/ML (20 ML MDV) ONE (09:50)
[2021-05-12] MEDS ORDERED: KETAMINE 10 MG/ML 20 ML VIAL ONE (09:50)
[2021-05-12] MEDS ORDERED: TRANEXAMIC ACID 1,000 MG/10 ML VIAL ONE (09:50)
[2021-05-12] MEDS ORDERED: SODIUM CHLORIDE 0.9% 100 ML BAG ONE (09:50)
[2021-05-12] MEDS ORDERED: ROPIVACAINE 5 MG/ML 30 ML VIAL ONE (09:50)
[2021-05-12] MEDS ORDERED: MIDAZOLAM 2 MG/2 ML VIAL ONE (09:50)
[2021-05-12] MEDS ORDERED: PHENYLEPHRINE-0.9% NACL SYG 1,000 MCG/10 ML SYRINGE ONE (09:50)
[2021-05-12] MEDS ORDERED: PROPOFOL 10 MG/ML 20 ML VIAL IV ONE (09:50)
[2021-05-12] MEDS ORDERED: DEXAMETHASONE SOD PHOSPHATE 4 MG/ML 1 ML VIAL ONE (09:50)
[2021-05-12] MEDS ORDERED: ceFAZolin 1,000 MG in SODIUM CHLORIDE 0.9% 1,000 ML IRRIGATION ONE (10:26)
[2021-05-12] MEDS ORDERED: HYDROcodone/APAP 5-325MG 1 EACH TAB PO PRN (11:41)
[2021-05-12] MEDS ORDERED: HYDROmorphone 0.5 MG/0.5 ML SYRINGE IVP PRN (11:41)
[2021-05-12] MEDS ORDERED: HYDROmorphone 0.2 MG/1 ML SYRINGE IVP PRN (11:41)
[2021-05-12] MEDS ORDERED: NALOXONE 0.4 MG/ML 1 ML VIAL IV PRN (11:41)
[2021-05-12] MEDS ORDERED: ONDANSETRON 4 MG/2 ML VIAL IVP PRN (11:41)
[2021-05-12] MEDS ORDERED: HYDROmorphone 1 MG/ML 1 ML SYRINGE IVP PRN (11:41)
[2021-05-12] MEDS ORDERED: hydrOXYzine pamoate 25 MG CAP PO PRN (11:41)
--- NOTE | 2021-05-12 11:41 | P.OP ---
Date of Procedure: 05/12/21 Preoperative Diagnosis: Right knee osteoarthritis Postoperative Diagnosis: Right knee osteoarthritis Procedure(s) Performed: Right total knee arthroplasty Implants: 1. Aesculap size 5 right cruciate retaining cemented femur 2. Aesculap size 3 cemented tibial baseplate 3. Aesculap size 3 cruciate retaining 10 mm polyethylene tibial insert 4. Aesculap T3 cemented all polyethylene patella Anesthesia: regional (Adductor canal catheter, Ipack block), spinal Surgeon: Felton Scott Mannequin Mold Maker #1: Damian Israel Estimated Blood Loss (ml): 40 Pathology: other (Bone) Condition: stable Disposition: PACU Indications for Procedure: 60-year-old patient seen with symptomatic right knee osteoarthritis. After having treatment options discussed, she elected to proceed with total knee arthroplasty. Operative Findings: See description of procedure Description of Procedure: Patient was taken to the operative suite after having an adductor canal catheter placed by the department of anesthesia. Patient underwent a spinal anesthetic by the department of anesthesia. Patient was given preoperative IV intake antibiotics and TXA. A well-padded tourniquet was placed about the right lower extremity. The lower extremity was then prepped and draped in the normal sterile orthopedic fashion. The extremity was elevated, a tourniquet was insufflated to 300. A standard anterior incision was made sharply through skin. Dissection was taken down through the subcutaneous soft tissues down to the extensor mechanism. A medial arthrotomy was performed, patella was everted and knee was flexed. There was advanced osteoarthritis noted. I introduced my distal intramedullary femoral drill. I then introduced the distal femoral cutting jig. Dev FENG secured the cutting jig with 2 pins. I held retractors in position while Dev FENG performed the distal femoral resection through the guide area we now removed her distal femoral cutting guide. We now placed our 4-in-1 femoral cutting block and positioned and it was secured with 2 pins by Dev FENG while I held the block in position. The distal femoral finishing was now completed. A proximal tibial cutting guide was positioned. I held the guide in the appropriate position with both hands well Dev FENG inserted stabilizing pins into the guide. Proximal tibial cut was made. We now placed a trial femoral component into position, along with an appropriate size tibial tray and insert. We now took the knee through range of motion and had full extension good flexion and good overall soft tissue balance noted. The patella was everted and stabilized with 2 towel clips held by Dev FENG while I performed a flush with patellar quad tendon utilizing a fresh sawblade. We templated the patella, appropriate drill holes were made. An appropriate trial patella was positioned, knee was taken through full range of motion with the patella tracking very nicely. The trial patella was removed. Drill holes were made through the femoral component. All trial components were removed after marking off the appropriate rotation of the tibia. Retractors were now positioned along the proximal tibia. An appropriate keel punch was made with the appropriate size tibial guide by myself on Dev FENG assisted by holding retractors. At this point appropriate size implants were chosen and opened. The joint was irrigated copiously with pulse lavage mechanical irrigation. The posterior capsule was infiltrated with local analgesic. The wound was irrigated with pulse lavage mechanical irrigation. We mixed antibiotic methylmethacrylate. We placed the knee into flexion. We placed multiple retractors assisted by Dev FENG to expose the proximal tibia. Once the methyl methacrylate was ready, the tibial component was cemented into place removing any excess methylmethacrylate form by both myself and Dev FENG. The femoral component was cemented into place removing the removing any excess methylmethacrylate performed by both myself and eDv FENG. We then inserted the appropriate size polyethylene tibial insert. We made sure that it was locked into position. We took the knee into full extension, and then back in a flexion making sure we had removed any excess methylmethacrylate. The patellar component was then cemented down and secured with clamp. Excess methylmethacrylate removed. We kept the knee in full extension, patellar clamp in position until methylmethacrylate had hardened. Once it had hardened the patellar clamp was removed. The knee was taken through full range of motion. The patella tracked nicely. There was good soft tissue balancing. The tourniquet was now released. Additional hemostasis was achieved via electrocautery. A second gram of TXA was given. The wound again was irrigated with pulse lavage mechanical irrigation. The extensor mechanism was repaired with Ethibond. We checked the repair with range of motion and it was stable. The subcutaneous soft tissues were repaired with Vicryl in layers. The skin was approximated with pernio/Dermabond. Sterile dressings were applied followed by loose web roll and Long bandage. The patient was transferred to a bed, and taken to recovery in stable and satisfactory condition. Dev FENG assisted with this complex procedure.
[2021-05-12] MEDS ORDERED: LACTATED RINGERS 1,000 ML IV ONE (11:49)
[2021-05-12] MEDS: ROPIVACAINE 0.2%-NS ON-Q PUMP 1,090 MG, EMPTY PAIN BALL 1 EACH MISCELLANE PRN ×2 (12:09→20:16)
[2021-05-12 12:24] LABS: Glucose,Whole Blood 104 mg/dL (75-99)
--- NOTE | 2021-05-12 12:43 | XR ---
EXAMINATION TYPE: XR knee limited RT DATE OF EXAM: 05/12/2021 COMPARISON: 04/02/2021 HISTORY: 60-year-old female evaluation for postoperative abnormality in alignment TECHNIQUE: 2 views FINDINGS: Images show placement of right total knee arthroplasty. Bile distal femoral and proximal ti bial components of the prosthesis appear well seated without periprosthetic fracture. Alignment gross ly anatomic. Anterior soft tissue swelling with scattered soft tissue air as well as intra-articular air related to recent operation. Some anterior skin kevin at or just below the level of the tibial tuberosity. Prominent hyperostosis posterior femoral condyles on the lateral view again noted. IMPRESSION: Uncomplicated postoperative appearance right total knee arthroplasty.
[2021-05-12] MEDS: LACTATED RINGERS 1,000 ML IV SCH ×2 (15:15→23:12)
[2021-05-12] MEDS: HYDROcodone/APAP 7.5-325MG 1 EACH TAB PO PRN ×2 (18:26→23:40)
[2021-05-12] MEDS: GABAPENTIN 400 MG CAP PO SCH (20:22)
[2021-05-12 20:45] LABS: Glucose,Whole Blood 197 mg/dL (75-99)
[2021-05-12] MEDS ORDERED: atenoloL 50 MG TAB PO SCH (21:00)
[2021-05-12] MEDS ORDERED: SENNOSIDES-DOCUSATE SODIUM 1 EACH TAB PO SCH (21:00)
[2021-05-12] MEDS ORDERED: NON FORMULARY DRUG (Insulin Degludec [Tresiba] 100 UNIT/ML Vial) SQ SCH (21:00)
--- NOTE | 2021-05-12 21:51 | CONS ---
CONSULTATION REASON FOR CONSULTATION: Advice regarding diabetes mellitus, hypertension, hyperlipidemia requested by Dr. Scott. HISTORY OF PRESENT ILLNESS: This 60-year-old woman with a past medical history of diabetes, hypertension, hyperlipidemia, being followed by Dr. Srinivas Osman in the outpatient setting, underwent right total knee arthroplasty by Dr. Scott. The patient tolerated the procedure well. Currently patient complaining of severe right knee pain. There is no history of fever, rigors or chills. No history of headache, loss of consciousness or seizures. PAST MEDICAL HISTORY: History of diabetes, hypertension, hyperlipidemia, cholecystectomy. MEDICATIONS: Prior to admission include home medications are: Zestril 5 mg q.a.m., Glucotrol 5 mg q.h.s. Claritin, Tresiba, Neurontin, Trulicity, Colace, Tenormin, doses reviewed. ALLERGIES: SULFA, BACTRIM, BEE POLLEN LEVEMIR, NICKEL, STATINS. FAMILY HISTORY: History of multiple myeloma, skin cancer. SOCIAL HISTORY: Previous history of smoking. REVIEW OF SYSTEMS: ENT: No diminished vision. No diminished hearing. CARDIOVASCULAR: No angina or palpitations. RESPIRATION: As mentioned earlier. GI: As mentioned earlier. : No dysuria. NERVOUS SYSTEM: No numbness, weakness. ALLERGY/IMMUNOLOGY: No asthma or hayfever. MUSCULOSKELETAL as mentioned earlier. HEMATOLOGY/ONCOLOGY: No history of anemia. ENDOCRINE: As mentioned earlier. CONSTITUTIONAL: As mentioned earlier. RHEUMATOLOGY: Negative. DERMATOLOGY: Negative. PSYCHIATRIC: As mentioned earlier. PHYSICAL EXAMINATION: The patient is alert and oriented times three. Pulse 77, blood pressure 128/68, respiration 18, temperature 97.5, pulse ox 97% on room air. HEENT: Conjunctivae normal. Oral mucosa moist. NECK: No JVD. CARDIOVASCULAR: S1, S2 muffled. RESPIRATION: Breath sounds diminished in the bases. No rhonchi. No crackles. ABDOMEN: Soft, nontender. LEGS: Status post right knee arthroplasty. NERVOUS SYSTEM: Higher functions as mentioned earlier. Moves all 4 limbs. No focal motor or sensory deficits. LYMPHATICS: No lymph nodes palpable in the neck, axillae or groin. SKIN: No ulcers, no rashes or bleeding. JOINTS: No active deforming arthropathy. LABS: At this time glucose 114, 104. ASSESSMENT: 1. Status post right total knee joint arthroplasty. 2. Diabetes mellitus type 2. 3. Hypertension. 4. Hyperlipidemia. 5. History of cataracts. 6. History of cholecystectomy. 7. History of degenerative joint disease. 8. Remote history of nicotine dependence. 9. Obesity with body mass index 41.6. 10.FULL CODE. RECOMMENDATIONS AND DISCUSSION: In this 60-year-old woman who presented with multiple complex medical issues, we will monitor the patient closely, continue the current medications. Continue with pain management. DVT prophylaxis. The patient is on Lovenox 30 mg subcutaneously b.i.d. Recommend resume the home medication. Monitor blood sugars closely. We will follow the patient closely with you. Thank you Dr. Scott for letting us participate in this patient. The patient may be asked to follow with Dr. Srinivas Osman closely after discharge. MMODL / IJN: [id number] /
[2021-05-13] MEDS ORDERED: ENOXAPARIN 30 MG/0.3 ML SYRINGE SQ SCH (02:00)
[2021-05-13 06:56] LABS: Glucose,Whole Blood 175 mg/dL (75-99)
[2021-05-13] MEDS: GABAPENTIN 400 MG CAP PO SCH (07:22)
[2021-05-13] MEDS: INSULIN ASPART (NovoLOG) 100 UNIT/ML VIAL SQ SCH ×2 (07:23→12:00)
[2021-05-13] MEDS: LACTATED RINGERS 1,000 ML IV SCH (07:23)
--- NOTE | 2021-05-13 07:43 | P.ANPRN ---
Procedure Note - Anesthesia - Nerve Block Performed Right Adductor Canal Infusion Time Out Performed: Yes Date of Procedure: 05/12/21 Procedure Start Time: Procedure Stop Time: Location of Patient: PreOp Indication: Acute Post-Operative Pain, Requested by Surgeon Sedation Type: Sedate with meaningful contact maintained Preparation: Sterile Prep, Sterile Dressing Position: Supine Catheter: Indwelling Needle Types: Pajunk Needle Gauge: 21 Ultrasound used to visualize needle placement: Yes Ultrasound used to observe medication spread: Yes Blood Aspirated: No Pain Paresthesia on Injection Noted: No Resistance on Injection: Normal Image Stored and Saved: Yes Events: Uneventful and Well Tolerated (Ropivacaine 0.5% 20 mL)
--- NOTE | 2021-05-13 07:44 | P.ANPRN ---
Procedure Note - Anesthesia - Nerve Block Performed Right [place] Single Time Out Performed: Yes Date of Procedure: 05/12/21 Procedure Start Time: : Procedure Stop Time: :35 Location of Patient: PreOp Indication: Acute Post-Operative Pain, Requested by Surgeon Sedation Type: Sedate with meaningful contact maintained Preparation: Sterile Prep Position: Supine Needle Types: Pajunk Needle Gauge: 21 Ultrasound used to visualize needle placement: Yes Ultrasound used to observe medication spread: Yes Blood Aspirated: No Pain Paresthesia on Injection Noted: No Resistance on Injection: Normal Image Stored and Saved: Yes Events: Uneventful and Well Tolerated (Ropivacaine 0.5% C's plus dexamethasone 4 mg)
--- NOTE | 2021-05-13 07:45 | P.PN ---
Progress Note - Text 05/13/21 731am 60-year-old female status post total knee replacement. Patient seen and evaluated this morning, patient has an On-Q pump for postop pain control with the solution running at 8 mL an hour with a VAS of 5 On-Q pump infusion was increased to 10 mL an hour. Pain is located primarily on the anterior side. Plan to continue On-Q pump infusion
[2021-05-13 07:56] VITALS: BP 118/68; PULSE 79; RESP 18; TEMP 99.3
[2021-05-13] MEDS: HYDROcodone/APAP 7.5-325MG 1 EACH TAB PO PRN ×2 (08:36→13:39)
[2021-05-13] MEDS ORDERED: LORATADINE 10 MG TAB PO SCH (09:00)
[2021-05-13] MEDS ORDERED: MELOXICAM 7.5 MG TAB PO SCH (09:00)
[2021-05-13] MEDS ORDERED: lisinopriL 5 MG TAB PO SCH (09:00)
[2021-05-13 10:54] LABS: Basophils # (A) 0.01 X 10*3/uL (0.00-0.10); Basophils % (A) 0.1 %; Eosinophils # (A) 0 X 10*3/uL (0.04-0.35); Eosinophils % (A) 0 %; HGB 11.3 g/dL (12.0-15.0); Lymphocytes % (A) 11.9 %; MCH 28.5 pg (27.0-32.0); MCHC 31.4 g/dL (32.0-37.0); MCV 90.7 fL (80.0-97.0); Mean Platelet Volume 10.1 fL (9.5-12.2); Monocytes # (A) 1.08 X 10*3/uL (0.20-1.00); Monocytes % (A) 9.2 %; Neutrophils # (A) 9.22 X 10*3/uL (1.80-7.70); Neutrophils % (A) 78.1 %; Platelet Count 350 X 10*3/uL (140-440); RBC 3.97 X 10*6/uL (4.10-5.20); RDW 14.1 % (11.5-14.5); WBC 11.79 X 10*3/uL (4.50-10.00)
[2021-05-13 11:59] LABS: Glucose,Whole Blood 243 mg/dL (75-99)
--- NOTE | 2021-05-13 12:32 | P.DS ---
Providers Date of admission: 05/12/2021 Expected date of discharge: 05/13/21 Attending physician: Felton Scott Consults: 05/12/21 11:41 Consult Physician Routine Consulting Provider: Gerald Dc Consult Reason/Comments: Medical management Do you want consulting provider notified?: Yes Primary care physician: [facility]rin[facility] Course: Date of admission: 05/12/2021 Date of discharge: 05/13/2021 Admission diagnosis: Right knee osteoarthritis Discharge diagnosis: Same Attending physician: Dr. Scott Surgical procedures: Right total knee arthroplasty Brief history: Patient is a 60-year-old female with a history of progressive primary right knee osteoarthritis. At this point patient has failed conservative treatment measures and has opted to proceed with a elective right total knee arthroplasty. Hospital course: Details of patient's surgery can be found in operative report. Patient tolerated the procedure well and was subsequently transported to orthopedic floor. Patient's orthopeidc and medical care was provided daily. Patient had daily laboratory tests performed for evaluation of overall blood co unts . Patient had daily physical therapy to include strengthening range of motion as well as education with walker ambulation. Patient was treated with Lovenox for their postoperative DVT prophylaxis during their inpatient stay. Patient was noted to have a relatively uneventful postoperative course. Patient reported satisfactory pain control with oral pain medications by postoperative day 1. Patient showed satisfactory progress with physical therapy. Patient moved steadily through the program and had no difficulty meeting the goals by postoperative day 1. Given patient's otherwise satisfactory course and having met physical therapy goals, plan is to discharge patient home on postoperative day 1. Discharge condition/disposition: Patient will be discharged home in stable condition. Discharge medications: Instructions are given on resumption of patient's normal daily medications per primary care recommendation, in addition patient will be prescribed [place] 7.5 mg/25 mg; patient has Eliquis at home that she will take or DVT ppx. Discharge instructions: 1. Wound care and infection precautions, keep incision dry and covered while showering, no lotions, creams, moisturizers. No soaking, tubs, pools, hottubs. Do not scrub over the incision. 2. Weight-bear as tolerated with walker / cane until follow-up. 3. Ice and elevate when necessary. Do not exceed 20 minutes per hour with ice pack. 4. Utilize compression sleeve until seen at first follow up appointment. 5. Visiting nursing care. 6. Home physical therapy including home CPM. 7. Pain meds and anticoagulants per prescription. 8. Pain medication has potential to cause constipation. Increase oral fluid and fiber intake. Contact primary care provider if you have not had a bowel movement within 48 hours after discharge 9. No anti-inflammatory medication until discussed at first post operative visit, this including Motrin, Aleve, Mobic, Diclofenac. 10. Follow up in office at 2 weeks postop with Dev Israel PA-C / Sterling Tineo PA-C 11. Follow up with your primary care doctor 7-10 days after discharge. 12. Contact [facility] with any questions, . Assessment: Right knee osteoarthritis Procedures: Right total knee arthroplasty Patient Condition at Discharge: Good Plan - Discharge Summary Discharge Rx Participant: No New Discharge Prescriptions: New HYDROcodone/APAP 7.5-325MG [[place] 7.5-325] 1 tab PO Q6HR PRN #28 tab PRN Reason: Pain No Action Gabapentin [Neurontin] 400 mg PO TID Atenolol [Tenormin] 50 mg PO HS glipiZIDE [Glucotrol] 5 mg PO HS lisinopriL [Zestril] 5 mg PO QAM Insulin Degludec [Tresiba] 80 units SQ HS Dulaglutide [Trulicity] 1.5 mg SQ WE Docusate [Colace] 100 mg PO DAILY Loratadine [Claritin] 10 mg PO DAILY Discharge Medication List Atenolol [Tenormin] 50 mg PO HS 12/24/20 [History] Dulaglutide [Trulicity] 1.5 mg SQ WE 12/24/20 [History] Gabapentin [Neurontin] 400 mg PO TID 12/24/20 [History] Insulin Degludec [Tresiba] 80 units SQ HS 12/24/20 [History] lisinopriL [Zestril] 5 mg PO QAM 12/24/20 [History] Docusate [Colace] 100 mg PO DAILY 03/06/21 [History] Loratadine [Claritin] 10 mg PO DAILY 04/17/21 [History] glipiZIDE [Glucotrol] 5 mg PO HS 05/06/21 [History] HYDROcodone/APAP 7.5-325MG [[place] 7.5-325] 1 tab PO Q6HR PRN #28 tab 05/13/21 [Rx] Follow up Appointment(s)/Referral(s): Evans Sarah,Equipment [NON-STAFF] - (*Please call [facility] once home to arrange delivery of the Continuous Passive Motion (CPM) machine.) Srinivas Osman DO [Primary Care Provider] - 1 Week Damian Israel PAC [PHYSICIAN DELIVERY HELPER] - 05/30/21 9:40 am [facility] Visiting Nurse, [NON-STAFF] - ([facility] will call you to arrange the time for your first visit. ) Activity/Diet/Wound Care/Special Instructions: Orthopedic Discharge Instructions: 1. Wound care and infection precautions, keep incision dry and covered while showering, no lotions, creams, moisturizers. No soaking, pools, hot tubs. Do not scrub over incision. 2. Weight-bear as tolerated with walker / cane until follow-up. 3. Ice and elevate when necessary. Do not exceed 20 minutes per hour with ice pack. 4. Utilize compression sleeve until seen at first follow up appointment. 5. Pain meds and anticoagulants per prescription. 6. Pain medication has potential to cause constipation. Increase oral fluid and fiber intake. Contact primary care provider if you have not had a bowel movement within 48 hours after discharge. 7. No anti-inflammatory medication until discussed at first post operative visit, this including Motrin, Aleve, Mobic, Diclofenac. 8. Follow up in office at 2 weeks postop with Dev Israel PA-C / Sterling Tineo PA-C 9. Follow up with your primary care doctor 7-10 days after discharge. 10. Contact [facility] with any questions, . Keep silver foam dressing on for first 7-10 days. While showering, please cover dressing with Saran wrap. Discharge Disposition: HOME WITH HOME HEALTH SERVICES
--- NOTE | 2021-05-13 14:27 | P.PN ---
Subjective Progress Note Date: 05/13/21 Principal diagnosis: Right knee osteoarthritis Patient seen at bedside this morning. Patient says she is doing well and ready to go home. Patient says she has had bowel movements since yesterday. She says she hasn't had moderate amount pain but narcotic medication has helped. Patient says physical therapy went well and at home therapy was discussed. Patient denies chest pain, fever, shortness breath, nausea, vomiting, change in vision, loss of bowel/bladder control. Objective - Vital Signs Vital signs: Vital Signs Temp 99.3 F 05/13/21 07:54 Pulse 79 05/13/21 07:54 Resp 18 05/13/21 07:54 BP 118/68 05/13/21 07:54 Pulse Ox 91 L 05/13/21 07:54 Intake & Output 05/12/21 05/13/21 05/13/21 18:59 06:59 18:59 Intake Total 1251 Output Total 50 Balance 1201 Weight 114.305 kg Intake: IV 1251 Output: Estimated Blood Loss 50 Other: # Voids 1 2 # Bowel Movements 0 - Exam Right knee: Incision is clean, dry, and intact. The silver foam tape is in good condition. There is minimal soft tissue swelling and ecchymosis surrounding the medial and lateral aspects of the incision. Calf is soft, no tenderness with palpation. Plantar flexion, dorsiflexion, EHL, FHL are intact. Sensory exam to light touch throughout the extremity is intact, dorsal pedis pulses 2+. - Labs CBC & Chem 7: 05/13/21 07:18 Labs: Abnormal Lab Results - Last 24 Hours (Table) 05/12/21 05/13/21 05/13/21 Range/Units 20:42 06:54 07:18 WBC 11.79 H (4.50-10.00) X 10*3/uL RBC 3.97 L (4.10-5.20) X 10*6/uL Hgb 11.3 L (12.0-15.0) g/dL Hct 36.0 L (37.2-46.3) % MCHC 31.4 L (32.0-37.0) g/dL Immature Gran # 0.08 H (0.00-0.04) X 10*3/uL Neutrophils # 9.22 H (1.80-7.70) X 10*3/uL Monocytes # 1.08 H (0.20-1.00) X 10*3/uL Eosinophils # 0 L (0.04-0.35) X 10*3/uL POC Glucose (mg/dL) 197 H 175 H (75-99) mg/dL 05/13/21 Range/Units 11:56 WBC (4.50-10.00) X 10*3/uL RBC (4.10-5.20) X 10*6/uL Hgb (12.0-15.0) g/dL Hct (37.2-46.3) % MCHC (32.0-37.0) g/dL Immature Gran # (0.00-0.04) X 10*3/uL Neutrophils # (1.80-7.70) X 10*3/uL Monocytes # (0.20-1.00) X 10*3/uL Eosinophils # (0.04-0.35) X 10*3/uL POC Glucose (mg/dL) 243 H (75-99) mg/dL Assessment and Plan Assessment: Postop day #1 status post right total knee arthroplasty Plan: 1. Right knee osteoarthritis - surgery performed yesterday, 1right total knee arthroplasty. Patient stable this morning plan for discharge home today 2. Pain management - patient going home with [place] 7.5 mg amd Lyrica 75 mg for pain 3. GI prophylaxis/DVT prophylaxis - Lovenox and senna in hospital. Patient has stool softeners at home and has Eliquis at home to take for DVT ppx 4. PT/OT - weightbearing as tolerated with walker for assistance 5. Appreciate medical management 6. Encourage incentive spirometer use 7. Discharge planning - discharge home today. Time with Patient: Less than 30
--- NOTE | 2021-05-13 17:48 | PN ---
PROGRESS NOTE DATE OF SERVICE: 05/13/2021 This 60-year-old woman who was admitted after right total knee arthroplasty is improving significantly. No chest pain. No palpitations. No fever. PHYSICAL EXAMINATION: Alert and oriented x3. Pulse is 79. Blood pressure 118/60, respiration 18, temperature 99.3, pulse ox 91 percent on room air. HEENT: Conjunctivae normal. Neck: No JVD. Cardiovascular: S1, S2 muffled. Respiratory: Breath sounds diminished in the bases. No rhonchi. No crackles. Abdomen: Soft. Legs status post surgery. LABS: Glucose 243. WBC 11.7, hemoglobin 11.3. ASSESSMENT: 1. Status post right total knee joint arthroplasty. 2. Diabetes mellitus type 2 with hyperglycemia. 3. Hypertension. 4. Hyperlipidemia. 5. History of cataracts. 6. History of cholecystectomy. 7. History of degenerative joint disease. 8. Remote history of nicotine dependence. 9. Obesity with body mass index 41.6. 10.FULL CODE. RECOMMENDATIONS AND DISCUSSION: Recommend to continue current medications, management and symptomatic treatment. Otherwise at this time, I recommend monitor Accu-Cheks closely. Follow up with the primary physician. The rest of the recommendations per Orthopedic surgery. Further recommendations to follow. MMODL / IJN: [id number] /
[2021-05-13] MEDS ORDERED: glipiZIDE 5 MG TAB PO SCH (21:00)
[2021-05-14] MEDS ORDERED: NON FORMULARY DRUG (Dulaglutide [Trulicity] 1.5 MG/0.5 ML Pen.Injctr) SQ SCH (09:00)
== END 2021-05-13 14:04 | disposition home health service (06) ==
LOC: OR 08:07 → 4SSUR 14:22 → OR 05-13 14:04
PROVIDERS: ATTEND Orthopaedic Surgery
DX: M17.11 Unilateral primary osteoarthritis, right knee (principal); I10 Essential (primary) hypertension; E11.9 Type 2 diabetes mellitus without complications; Z79.899 Other long term (current) drug therapy; Z79.84 Long term (current) use of oral hypoglycemic drugs; Z88.2 Allergy status to sulfonamides; Z88.8 Allergy status to other drugs, medicaments and biological substances
CPT/HCPCS: 97161; 64999; 64448; 76942; 85025; 88300; 73560; 27447; C1776; C1713 ×2; J2250; J1100; J0690 ×3; J2405; J2001; J3010; J1650; J2795 ×2; J2370; J2704; J1170

== ENCOUNTER → 2021-07-29 | Outpatient (CLI) | payer BC ==
--- NOTE | 2021-07-30 09:02 | MM ---
Reason for exam: follow-up at short interval from prior study. Last mammogram was performed 7 months ago. History: Patient is postmenopausal and has history of high-risk lesion on a previous biopsy at age 60. MG discontinued needle loc LT of the left breast, May 06, 2021. High risk MG stereo VAD BX LT of the left breast, February 28, 2021. Benign mammogram-guided core biopsy of the left breast, June 28, 2014. Physical Findings: Nurse did not find any significant physical abnormalities on exam. MG Diagnostic Mammo LT w CAD CC and MLO view(s) were taken of the left breast. Prior study comparison: December 19, 2020, bilateral MG work up mamm w CAD BILAT. The breast tissue is heterogeneously dense. This may lower the sensitivity of mammography. There is no discrete abnormality including area of concern posterior left MLO. No significant new findings when compared with previous films. These results were verbally communicated with the patient and result sheet given to the patient on 07/29/21. ASSESSMENT: Benign, BI-RAD 2 RECOMMENDATION: Return to routine screening mammogram schedule for both breasts. Back on schedule.
== END | disposition home or self-care (01) ==
LOC: RADMAMWWP 14:16
PROVIDERS: ATTEND Surgery
DX: R92.2 Inconclusive mammogram (principal); Z78.0 Asymptomatic menopausal state
CPT/HCPCS: 77065

== ENCOUNTER → 2021-08-08 | Outpatient (CLI) | payer BC ==
[2021-08-08 14:03] VITALS: BP 126/76; PULSE 84; RESP 18; TEMP 98.8
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
== END ==
LOC: WWCWWP 13:22
PROVIDERS: ATTEND Surgery
DX: N60.92 Unspecified benign mammary dysplasia of left breast (principal); E11.9 Type 2 diabetes mellitus without complications; J44.9 Chronic obstructive pulmonary disease, unspecified; M19.90 Unspecified osteoarthritis, unspecified site; Z88.2 Allergy status to sulfonamides; Z88.1 Allergy status to other antibiotic agents; Z91.030 Bee allergy status; Z88.8 Allergy status to other drugs, medicaments and biological substances; Z87.891 Personal history of nicotine dependence

== ENCOUNTER → 2021-12-11 | Outpatient (CLI) | payer BC ==
--- NOTE | 2021-12-16 12:51 | MM ---
Reason for exam: screening (asymptomatic). Last mammogram was performed 4 months ago. History: Patient is postmenopausal and has history of high-risk lesion on a previous biopsy at age 60. MG discontinued needle loc LT of the left breast, May 06, 2021. High risk MG stereo VAD BX LT of the left breast, February 28, 2021. Benign mammogram-guided core biopsy of the left breast, June 28, 2014. Physical Findings: A clinical breast exam by your physician is recommended on an annual basis and results should be correlated with mammographic findings. MG Screening Mammo w CAD Bilateral CC and MLO view(s) were taken. Prior study comparison: July 29, 2021, left breast MG diagnostic mammo LT w CAD. December 09, 2020, bilateral MG screening mammo w CAD. October 06, 2018, bilateral MG 3d screening mammo w/cad. The breast tissue is heterogeneously dense. This may lower the sensitivity of mammography. There are benign appearing round calcifications bilaterally. Previous mammotome biopsy in the left breast x 2. There is no discrete abnormality. ASSESSMENT: Benign, BI-RAD 2 RECOMMENDATION: Routine screening mammogram of both breasts in 1 year.
== END | disposition home or self-care (01) ==
LOC: RADMAMWWP 09:00
PROVIDERS: ATTEND Surgery
DX: Z12.31 Encounter for screening mammogram for malignant neoplasm of breast (principal); Z78.0 Asymptomatic menopausal state
CPT/HCPCS: 77067

== ENCOUNTER → 2021-12-25 | Outpatient (CLI) | payer BC ==
[2021-12-25 14:40] VITALS: BP 123/76; PULSE 83; RESP 16; TEMP 98
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
== END ==
LOC: WWCWWP 14:25
PROVIDERS: ATTEND Surgery
DX: N60.92 Unspecified benign mammary dysplasia of left breast (principal); E11.9 Type 2 diabetes mellitus without complications; J44.9 Chronic obstructive pulmonary disease, unspecified; M19.90 Unspecified osteoarthritis, unspecified site; Z87.891 Personal history of nicotine dependence; Z88.2 Allergy status to sulfonamides; Z91.030 Bee allergy status; Z88.8 Allergy status to other drugs, medicaments and biological substances; Z88.9 Allergy status to unspecified drugs, medicaments and biological substances

== ENCOUNTER → 2022-06-26 | Outpatient (CLI) | payer BC ==
[2022-06-26 13:02] VITALS: BP 131/82; PULSE 88; RESP 18; TEMP 98.5
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
== END ==
LOC: WWCWWP 12:17
PROVIDERS: ATTEND Surgery
DX: N60.92 Unspecified benign mammary dysplasia of left breast (principal); E11.9 Type 2 diabetes mellitus without complications; J44.9 Chronic obstructive pulmonary disease, unspecified; Z87.891 Personal history of nicotine dependence; Z91.030 Bee allergy status; Z88.8 Allergy status to other drugs, medicaments and biological substances; Z88.2 Allergy status to sulfonamides; Z91.048 Other nonmedicinal substance allergy status

== ENCOUNTER → 2022-12-14 | Outpatient (CLI) | payer BC ==
--- NOTE | 2022-12-14 13:59 | MM ---
Reason for Exam: Hx of breast cancer, conservation therapy. Last screening mammogram was performed 12 month(s) ago. Patient History: Menarche at age 9. First Full-Term at age 18. Postmenopausal. 06/28/2014, Benign Mammogram-Guided Core Biopsy on the left side. 02/28/2021, High risk Core Biopsy on the left side. 05/06/2021, MG discontinued needle loc LT on the left side. Risk Values: Tanisha 5 year model risk: 2.3%. NCI Lifetime model risk: 9.7%. Prior Study Comparison: 12/19/2020 Bilateral Diagnostic Mammogram, [facility]. 07/29/2021 Left Diagnostic Mammogram, [facility]. 12/11/2021 Bilateral Screening Mammogram, [facility]. Tissue Density: The breast tissue is heterogeneously dense. This may lower the sensitivity of mammography. Findings: Analyzed By CAD. There are 2 biopsy clips in the left breast redemonstrated. Benign-appearing axillary lymph nodes are redemonstrated. No suspicious new mass or distortion in either breast. Overall Assessment: Benign, BI-RAD 2 Management: Screening Mammogram of both breasts in 1 year. A clinical breast exam by your physician is recommended on an annual basis and results should be correlated with mammographic findings. This exam should not preclude additional follow-up of suspicious palpable abnormalities. Results were given to the patient verbally at the time of exam. Electronically signed and approved by: Shaan Bell M.D.
== END | disposition home or self-care (01) ==
LOC: RADMAMWWP 13:03
PROVIDERS: ATTEND Surgery
DX: R92.8 Other abnormal and inconclusive findings on diagnostic imaging of breast (principal); Z85.3 Personal history of malignant neoplasm of breast; Z78.0 Asymptomatic menopausal state; Z98.890 Other specified postprocedural states
CPT/HCPCS: 77066

== ENCOUNTER → 2022-12-18 | Outpatient (CLI) | payer BC ==
[2022-12-18 09:53] VITALS: BP 129/78; PULSE 81; RESP 18; TEMP 98.2
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
== END ==
LOC: WWCWWP 09:29
PROVIDERS: ATTEND Surgery
DX: N60.92 Unspecified benign mammary dysplasia of left breast (principal); Z85.3 Personal history of malignant neoplasm of breast; E11.9 Type 2 diabetes mellitus without complications; J44.9 Chronic obstructive pulmonary disease, unspecified; M48.00 Spinal stenosis, site unspecified; M19.90 Unspecified osteoarthritis, unspecified site; Z80.1 Family history of malignant neoplasm of trachea, bronchus and lung; Z87.891 Personal history of nicotine dependence; Z88.2 Allergy status to sulfonamides; Z88.7 Allergy status to serum and vaccine; Z88.6 Allergy status to analgesic agent; Z91.048 Other nonmedicinal substance allergy status

== ENCOUNTER → 2023-12-16 | Outpatient (CLI) | payer MEDICARE, OTHER ==
--- NOTE | 2023-12-17 13:02 | MM ---
Reason for Exam: Screening (asymptomatic). Last screening mammogram was performed 12 month(s) ago. Patient History: Menarche at age 9. First Full-Term at age 18. Postmenopausal. 06/28/2014, Benign Mammogram-Guided Core Biopsy on the left side. 02/28/2021, High risk Core Biopsy on the left side. 05/06/2021, MG discontinued needle loc LT on the left side. Risk Values: Tanisha 5 year model risk: 2.4%. NCI Lifetime model risk: 9.4%. Prior Study Comparison: 07/29/2021 Left Diagnostic Mammogram, [facility]. 12/11/2021 Bilateral Screening Mammogram, [facility]. 12/14/2022 Bilateral MG diagnostic mammo w CAD LISA, [facility]. Tissue Density: The breasts are heterogeneously dense, which may obscure small masses. Findings: Analyzed By CAD. Right breast: There is no suspicious group of microcalcifications or new suspicious mass. Left breast: There is no suspicious group of microcalcifications or new suspicious mass. There is no suspicious group of microcalcifications or new suspicious mass. Overall Assessment: Negative, BI-RAD 1 Management: Screening Mammogram of both breasts in [address] [facility] will attempt to contact patient to return for supplemental views and ultrasound if indicated. Patient should continue monthly self-breast exams. A clinical breast exam by your physician is recommended on an annual basis. This exam should not preclude additional follow-up of suspicious palpable abnormalities. Note on Tanisha scores and lifetime risk: 1. A Tanisha score greater than 3% is considered moderate risk. If this is the case, consider specialist referral to assess eligibility for a risk reducing agent. 2. If overall lifetime risk for the development of breast cancer is 20% or higher, the patient may qualify for future screening with alternating mammogram and breast MRI. Electronically signed and approved by: Joseph Gonzalez DO
== END | disposition home or self-care (01) ==
LOC: RADMAMWWP 09:29
PROVIDERS: ATTEND Surgery
DX: Z12.31 Encounter for screening mammogram for malignant neoplasm of breast (principal); Z78.0 Asymptomatic menopausal state
CPT/HCPCS: 77067

== ENCOUNTER → 2023-12-23 | Outpatient (CLI) | payer MEDICARE ==
[2023-12-23 10:34] VITALS: BP 127/78; PULSE 71; RESP 16; TEMP 98.2
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
== END ==
LOC: WWCWWP 09:29
PROVIDERS: ATTEND Surgery
DX: N60.92 Unspecified benign mammary dysplasia of left breast (principal); N60.11 Diffuse cystic mastopathy of right breast; N60.12 Diffuse cystic mastopathy of left breast; E11.9 Type 2 diabetes mellitus without complications; J44.9 Chronic obstructive pulmonary disease, unspecified; M19.90 Unspecified osteoarthritis, unspecified site; M54.50 Low back pain, unspecified; M48.061 Spinal stenosis, lumbar region without neurogenic claudication; Z87.891 Personal history of nicotine dependence; Z88.2 Allergy status to sulfonamides; Z88.1 Allergy status to other antibiotic agents; Z91.030 Bee allergy status; Z91.09 Other allergy status, other than to drugs and biological substances; Z88.8 Allergy status to other drugs, medicaments and biological substances; Z79.85 Long-term (current) use of injectable non-insulin antidiabetic drugs; Z79.899 Other long term (current) drug therapy; Z79.84 Long term (current) use of oral hypoglycemic drugs

== ENCOUNTER → 2024-08-03 | Outpatient (CLI) | payer MEDICARE, OTHER ==
--- NOTE | 2024-08-03 22:44 | MR ---
EXAMINATION TYPE: MR shoulder LT wo con DATE OF EXAM: 08/03/2024 COMPARISON: Outside left shoulder x-ray July 19, 2024 HISTORY: Left shoulder pain and limited movement for about 4 months. TECHNIQUE: Multiplanar, multisequence imaging of the left shoulder is performed without contrast. FINDINGS: Rotator Cuff: Some increased signal in the distal infraspinatus tendon. More prominent increased sign al with partial tearing of the distal supraspinatus tendon. Intact subscapularis tendon. Mild general ized atrophy of the supraspinatus muscle bulk. Acromioclavicular Joint: Moderate narrowing with moderate spurring of the acromioclavicular joint. Mo derate to severe capsular hypertrophy. Loss of Underlying fat plane. Glenohumeral Joint: Small to moderate-sized joint effusion. No significant spurring. Narrowing is see n. Labrum: Marked increased signal superior labrum consistent with tear. Biceps Tendon: The long head of biceps is in normal location within bicipital groove. Intracapsular p ortion shows thickening and increased signal. Bone marrow signal: No focal abnormal marrow signal is appreciated. Other: No additional significant abnormality is appreciated. IMPRESSION: 1. Mild tendinosis of infraspinatus tendon. More significant tendinosis and tearing of the supraspina tus tendon. Mild atrophy of the supraspinatus muscle. 2. Moderate to severe AC joint arthropathy. Suspect underlying impingement. 3. Superior labral tear which may be degenerative in etiology. 4. Tendinosis of the intracapsular portion of long head of biceps tendon. [facility], , 08/03/2024 10:42 PM
== END | disposition home or self-care (01) ==
LOC: RADMRIMAIN 05:32
PROVIDERS: ATTEND Orthopaedic Surgery
DX: S43.432A Superior glenoid labrum lesion of left shoulder, initial encounter (principal); M19.012 Primary osteoarthritis, left shoulder; M67.814 Other specified disorders of tendon, left shoulder; M62.512 Muscle wasting and atrophy, not elsewhere classified, left shoulder

== ENCOUNTER 2024-09-07 05:33 | Day surgery (SDC) | payer MEDICARE, OTHER ==
[2024-09-05 10:57] VITALS: BMI 40.7
--- NOTE | 2024-09-07 01:41 | HP ---
HISTORY AND PHYSICAL DATE OF SURGERY: 09/07/2024. HISTORY OF PRESENT ILLNESS: Ofelia Iraheta is a 63-year-old patient seen with progressive left shoulder pain. Options for treatment were discussed with her. She elected to proceed with left shoulder arthroscopy. Consent was obtained. Medical clearance was provided by Dr. Keenan Aguila. PAST MEDICAL HISTORY: Hypertension, ble-[id number] diabetes, COPD. PAST SURGICAL HISTORY: Right hand surgery, cervical fusion, bilateral total knee arthroplasty. DAILY MEDICATIONS: 1. Atenolol. 2. Gabapentin. 3. Glipizide. 4. Lisinopril. 5. Trulicity. ALLERGIES: Statins. SOCIAL HISTORY: She denies tobacco use. PHYSICAL EVALUATION OF THE LEFT SHOULDER: Flexion is 130 degrees. Abduction is 110 degrees. External rotation is 30 degrees with weakness. She is tender along the anterolateral acromion and rotator cuff insertion site. Impingement is positive at 90 degrees. Cross-body adduction sign is positive. Distal neurovascular exam is intact. IMAGING STUDIES: Left shoulder radiographs revealed a type 2 acromion. Moderate acromioclavicular joint osteoarthritis and cystic changes of the tuberosity. MRI of left shoulder revealed a rotator cuff tendon tear, severe acromioclavicular joint osteoarthritis, labral tear, biceps tendinitis. IMPRESSION: 1. Left shoulder impingement with rotator cuff tear. 2. Left shoulder acromioclavicular joint osteoarthritis. 3. Left shoulder labral tear. 4. Left shoulder biceps tendinitis. PLAN: Left shoulder arthroscopy with subacromial decompression, biceps tenodesis, Chema procedure, and debridement of labral tear. MMODL / IJN: [id number] /
[2024-09-07 06:53] LABS: Glucose,Whole Blood 75 mg/dL (70-110)
[2024-09-07] MEDS: ONDANSETRON 4 MG/2 ML VIAL IVP ONE (06:53)
[2024-09-07] MEDS: LACTATED RINGERS 1,000 ML IV SCH (06:53)
[2024-09-07] MEDS: DEXAMETHASONE SOD PHOSPHATE 4 MG/ML 1 ML VIAL IV ONE (06:53)
[2024-09-07] MEDS ORDERED: HYDROmorphone 0.5 MG/0.5 ML SYRINGE IVP PRN (07:00)
[2024-09-07] MEDS: MIDAZOLAM 2 MG/2 ML VIAL IV ONE (07:04)
[2024-09-07 07:19] VITALS: TEMP 97
--- NOTE | 2024-09-07 07:21 | P.ANPRN ---
Procedure Note - Anesthesia - Nerve Block Performed Left Interscalene Single Time Out Performed: Yes ([id number]) Date of Procedure: 09/07/24 Procedure Start Time: :04 Procedure Stop Time: :08 Location of Patient: PreOp Indication: Acute Post-Operative Pain, Requested by Surgeon Sedation Type: Sedate with meaningful contact maintained Preparation: Sterile Prep, Sterile Dressing Position: Sitting Catheter: None Needle Types: Hydrocapsule Needle Gauge: Other (see comment) (22-gauge 50 mm needle used for the procedure with 1 attempt) Ultrasound used to visualize needle placement: Yes Ultrasound used to observe medication spread: Yes Injectate: 0.5% Ropivacaine (see comment for volume) (20 mL of 0.5% ropivacaine mixed with 4 mg of dexamethasone) Blood Aspirated: No Pain Paresthesia on Injection Noted: No Resistance on Injection: Normal Image Stored and Saved: Yes Events: Uneventful and Well Tolerated
[2024-09-07] MEDS: IV FLUID CONTINUATION 1,000 ML IV ONE (07:22)
[2024-09-07] MEDS ORDERED: DEXAMETHASONE SOD PHOSPHATE 4 MG/ML 1 ML VIAL ONE (07:25)
[2024-09-07] MEDS ORDERED: ePHEDrine 50 MG/ML 1 ML VIAL ONE (07:25)
[2024-09-07] MEDS ORDERED: PROPOFOL 10 MG/ML 20 ML VIAL IV ONE (07:25)
[2024-09-07] MEDS ORDERED: ROPIVACAINE 5 MG/ML 30 ML VIAL ONE (07:25)
[2024-09-07] MEDS ORDERED: KETOROLAC 15 MG/ML 1 ML VIAL ONE (07:25)
[2024-09-07] MEDS ORDERED: fentaNYL (PF) 50 MCG/ML 2 ML AMP ONE (07:25)
[2024-09-07] MEDS ORDERED: SUCCINYLCHOLINE CHLORIDE 200 MG/10 ML VIAL IV ONE (07:25)
[2024-09-07] MEDS ORDERED: LIDOCAINE 1% INJ 10MG/ML (20 ML MDV) ONE (07:25)
[2024-09-07] MEDS: DEXTROSE 50% SYRINGE 50 ML IVP STA (07:28)
--- NOTE | 2024-09-07 09:36 | P.OP ---
Date of Procedure: 09/07/24 Preoperative Diagnosis: Left shoulder impingement Postoperative Diagnosis: 1. Left shoulder rotator cuff tear 2. Left shoulder impingement 3. Left shoulder bicipital tendinitis 4. Left shoulder acromioclavicular joint osteoarthritis 5. Left shoulder superficial labral tear Procedure(s) Performed: 1. Left shoulder arthroscopic rotator cuff repair 2. Left shoulder arthroscopic subacromial decompression 3. Left shoulder arthroscopic biceps tenodesis 4. Left shoulder arthroscopic Chema procedure 5. Left shoulder arthroscopic debridement labral tear Implants: 2Arthrex 4.75 swivel lock anchors Anesthesia: GETA, regional (Interscalene block) Surgeon: Felton Scott Rehabilitation Director #1: Damian Israel Estimated Blood Loss (ml): 10 Pathology: none sent Condition: stable Disposition: PACU Indications for Procedure: 63-year-old patient seen with progressive left shoulder pain. After having treatment options discussed, she elected to proceed with arthroscopy. Operative Findings: See description of procedure Description of Procedure: Patient underwent an interscalene block by department of anesthesia. The patient was then taken to the operative suite. The patient underwent a general anesthetic by the department of anesthesia. The patient was placed into a lateral position and secured. There was appropriate padding of the bony prominence. Left shoulder was then prepped and draped in normal sterile orthopedic fashion. We placed the extremity in 10 pounds of longitudinal traction. A posterior incision was now made for a posterior working portal site. The trocar and cannula were inserted into the glenohumeral joint. Arthroscopy was initiated. Spinal needle was now inserted anteriorly, to ascertain the anterior working portal site. An incision was now made in that area, a trocar was inserted followed by a probe. There was some superficial fraying of the superior labrum. There was obvious hyperemia and partial tearing long head biceps tendon. I could visualize a rotator cuff tendon tear from the glenohumeral joint. There were grade I chondromalacia changes of the glenoid fossa. I debrided out the superficial labral tear utilizing a motorized shaver. I decided to proceed with arthroscopic biceps tenodesis. I reduced a cannula through the anterior portal site. With the assistance of Dev FENG I passed a loop and tack stitch to the biceps tendon and release it from the superior labral anchor. With the assistance of Dev FENG partial hole at the interval for insertion of an anchor. The suture line was passed through the eyelet of an Arthrex 4.75 swivel lock anchor. I placed the eyelet into the prepunch hole. I held in position while Dev FENG tensioned the suture and deployed the anchor with good fixation noted. The residual suture limb was clipped. There was a stable appearing biceps tenodesis. The residual labrum was probed and was found to be stable. Instruments were now removed from glenohumeral joint. Utilizing the posterior working portal site, the trocar and cannula were inserted into the subacromial space. Arthroscopy initiated. I made an incision 2 fingerbreadths lateral to the acromion. I introduced my trocar followed by my ArthroCare ablator. I now began ablating thick subacromial bursal tissue, which exposed the undersurface of the anterior acromion. There was diminished suba cromial space. There was a very prominent anterior acromion. A motorized bur was introduced and a subacromial decompression was performed. I also excised some osteophytes off the inferior aspect of the distal clavicle. The AC joint was visualized and noted to be fairly arthritic. The motorized bur was introduced in the anterior portal site and a Chema procedure was performed without difficulty removing 8 mm of bone off the distal clavicle, decompressing the AC joint nicely. I turned my attention to the rotator cuff. There was a 1.5 cm rotator cuff tear along the anterior aspect of the distal supraspinatus. I debrided the margins getting down to stable tendon tissue. I introduced my motorized bur and abraded the footprint area, getting some petechial bleeding. I now with the assistance of Dev FENG passed 2 everted mattress sutures through good bites of rotator cuff tendon. I punched a hole in the footprint area for insertion of an anchor. All 4 limbs of suture were passed through the eyelet of an Arthrex 4.75 swivel lock anchor. I placed the eyelet into the prepunch hole. I held in position while Dev FENG tensioned all 4 limbs of suture and deployed the anchor with good fixation noted. All residual suture limbs were now clipped. We had good compression of the tendon along the entire footprint. Instruments now removed from the portal sites. All portal sites were approximated with nylon suture. Sterile dressings were applied followed by a shoulder immobilizer. Damian FENG assisted in this complex case. The patient was awakened, transferred to a bed, and taken to recovery in stable condition.
[2024-09-07 09:51] VITALS: RESP 16
[2024-09-07 09:56] LABS: Glucose,Whole Blood 134 mg/dL (70-110)
[2024-09-07 10:31] VITALS: BP 115/62; PULSE 61
[2024-09-07 10:51] LABS: Glucose,Whole Blood 122 mg/dL (70-110)
== END 2024-09-07 11:34 | disposition home or self-care (01) ==
LOC: OR 05:33
PROVIDERS: ATTEND Orthopaedic Surgery
DX: M75.112 Incomplete rotator cuff tear or rupture of left shoulder, not specified as traumatic (principal); S46.112A Strain of muscle, fascia and tendon of long head of biceps, left arm, initial encounter; M94.212 Chondromalacia, left shoulder; S43.492A Other sprain of left shoulder joint, initial encounter; M75.22 Bicipital tendinitis, left shoulder; M19.012 Primary osteoarthritis, left shoulder; M25.812 Other specified joint disorders, left shoulder; G89.18 Other acute postprocedural pain; I10 Essential (primary) hypertension; E11.9 Type 2 diabetes mellitus without complications; E78.5 Hyperlipidemia, unspecified; J44.9 Chronic obstructive pulmonary disease, unspecified; K21.9 Gastro-esophageal reflux disease without esophagitis; E66.9 Obesity, unspecified; Z68.42 Body mass index [BMI] 45.0-49.9, adult; Z79.85 Long-term (current) use of injectable non-insulin antidiabetic drugs; Z79.84 Long term (current) use of oral hypoglycemic drugs; Z79.899 Other long term (current) drug therapy; Z87.891 Personal history of nicotine dependence; Z88.2 Allergy status to sulfonamides; Z88.8 Allergy status to other drugs, medicaments and biological substances
CPT/HCPCS: 29827; 29828; 29826; 29824; 64415; C1713 ×3; J2250; J0330; J1100; J0690; J2405; J2003; J3010; J2795; J1885; J2704

== ENCOUNTER → 2024-12-21 | Outpatient (CLI) | payer MEDICARE ==
--- NOTE | 2024-12-21 10:53 | MM ---
Reason for Exam: Hx of benign breast biopsy. Last screening mammogram was performed 12 month(s) ago. Patient History: Menarche at age 9. First Full-Term at age 18. Postmenopausal. 06/28/2014, Benign Mammogram-Guided Core Biopsy on the left side. 02/28/2021, High risk Core Biopsy on the left side. 05/06/2021, MG discontinued needle loc LT on the left side. Risk Values: Tanisha 5 year model risk: 2.5%. NCI Lifetime model risk: 8.8%. Tissue Density: The breasts are heterogeneously dense, which may obscure small masses. Findings: Analyzed By CAD. Surgical biopsy clips are stable. There are benign appearing calcifications. Chronic nodularity likely representing stable. Additional subcentimeter chronic nodularity bilaterally. Overall Assessment: Benign, BI-RAD 2 Management: Screening Mammogram of both breasts in 1 year. . Results were given to the patient verbally at the time of exam. Patient should continue monthly self-breast exams. A clinical breast exam by your physician is recommended on an annual basis. This exam should not preclude additional follow-up of suspicious palpable abnormalities. Note on Tanisha scores and lifetime risk: 1. A Tanisha score greater than 3% is considered moderate risk. If this is the case, consider specialist referral to assess eligibility for a risk reducing agent. 2. If overall lifetime risk for the development of breast cancer is 20% or higher, the patient may qualify for future screening with alternating mammogram and breast MRI. [facility], , 12/21/2024 10:50 AM. Electronically signed and approved by: Dewey Love M.D. Radiologis
== END | disposition home or self-care (01) ==
LOC: RADMAMWWP 10:30
PROVIDERS: ATTEND Surgery
DX: R92.8 Other abnormal and inconclusive findings on diagnostic imaging of breast (principal); R92.1 Mammographic calcification found on diagnostic imaging of breast; R92.333 Mammographic heterogeneous density, bilateral breasts; Z78.0 Asymptomatic menopausal state
CPT/HCPCS: 77066; G0279; 77062

== ENCOUNTER → 2025-01-25 | Outpatient (CLI) | payer MEDICARE, OTHER ==
[2025-01-25 12:00] VITALS: BP 114/71; PULSE 73; RESP 16; TEMP 97.2
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
== END ==
LOC: WWCWWP 11:45
PROVIDERS: ATTEND Surgery
DX: N60.92 Unspecified benign mammary dysplasia of left breast (principal); N60.12 Diffuse cystic mastopathy of left breast; N60.11 Diffuse cystic mastopathy of right breast; E11.9 Type 2 diabetes mellitus without complications; J44.9 Chronic obstructive pulmonary disease, unspecified; M19.90 Unspecified osteoarthritis, unspecified site; M48.00 Spinal stenosis, site unspecified; Z88.2 Allergy status to sulfonamides; Z88.8 Allergy status to other drugs, medicaments and biological substances; Z91.048 Other nonmedicinal substance allergy status; Z91.030 Bee allergy status; Z88.1 Allergy status to other antibiotic agents; Z87.891 Personal history of nicotine dependence